=== PATIENT | male | born 1990 | race Two or more races ===

== ENCOUNTER 2019-11-09 18:22 | Inpatient (IN) | payer OTHER ==
[~2019-11-09] VITALS: Ht 180.3 cm; Wt 83.9 kg
--- NOTE | 2019-11-09 18:22 | NUR ---
PT BIB SELF C/O NAUSEA/VOMITING SINCE MONDAY. PT IS AAOX4, NOT IN RESPIRATORY DISTRESS, HOOKED TO ULTRASOUND SUPERVISOR, KEPT RESTED AND COMFORTABLE. WILL CONTINUE TO MONITOR.
--- NOTE | 2019-11-09 18:56 | NUR ---
SEEN AND EXAMINED BY DIANELYS DUNCAN NP.
[2019-11-09] MEDS ORDERED: ONDANSETRON HCL/PF 4 MG/2 ML VIAL IVP ONE (19:00)
[2019-11-09] MEDS ORDERED: IV NS 0.9% 1,000 ML BAG IV ONE (19:00)
--- NOTE | 2019-11-09 19:00 | NUR ---
IV LINE ESTABLISHED BLOOD DRAWN AND SENT TO LAB.
[2019-11-09] MEDS ORDERED: ONDANSETRON HCL/PF 4 MG/2 ML VIAL ONE ×2 (19:05→20:49)
[2019-11-09 19:13] LABS: BASOPHILS # (AUTO) 0.1 /CMM (0.0-0.2); BASOPHILS % (AUTO) 0.8 % (0.0-2.0); EOSINOPHILS % (AUTO) 0.2 % (0.0-6.0); HEMATOCRIT 58 % (39-51); HEMOGLOBIN 19.5 g/dL (13.5-17.5); LYMPHOCYTES # (AUTO) 0.4 /CMM (0.8-4.8); LYMPHOCYTES % (AUTO) 3.5 % (20.0-44.0); MEAN CORPUSCULAR HGB CONC 33 g/dl (31.0-36.0); MEAN CORPUSCULAR VOLUME 98 fL (80-96); MONOCYTES # (AUTO) 0.8 /CMM (0.1-1.30); MONOCYTES % (AUTO) 6.9 % (2.0-12.0); NEUTROPHILS # (AUTO) 10.1 /CMM (1.8-8.9); NEUTROPHILS % (AUTO) 88.6 % (43.0-81.0); PLATELET COUNT (AUTO) 291 /CMM (150-450); RED BLOOD CELL COUNT(AUTO) 5.98 MIL/uL (4.5-6.0); WHITE BLOOD COUNT (AUTO) 11.4 K/uL (4.3-11.0)
--- NOTE | 2019-11-09 19:35 | NUR ---
URINE SENT TO LAB
[2019-11-09 19:38] LABS: ALBUMIN 4.5 g/dL (3.4-5.0); BILIRUBIN,DIRECT 0.8 mg/dL (0.0-0.2); BILIRUBIN,TOTAL 2.4 mg/dL (0.2-1.0); CALCIUM, SERUM 10.1 mg/dL (8.5-10.1); TOTAL PROTEIN, SERUM 9.7 g/dL (6.4-8.2)
--- NOTE | 2019-11-09 19:51 | NUR ---
venous blood collected and sent with RT
[2019-11-09 19:54] LABS: APPEARANCE,URINE CLEAR (CLEAR); BILIRUBIN,URINE MODERATE (NEGATIVE); BLOOD, URINE SMALL Ery/uL (NEGATIVE); COLOR,URINE YELLOW (YELLOW); KETONES,URINE >=80 (NEGATIVE); LEUKOCYTE ESTERASE ,URINE NEGATIVE (NEGATIVE); NITRITE, URINE NEGATIVE (NEGATIVE); PROTEIN,URINE 100 mg/dl (NEGATIVE); UGLUCOSE 500 MG/DL mg/dL (NEGATIVE); UROBILINOGEN,URINE 0.2 EU/dL (0.2)
[2019-11-09 19:59] LABS: ABG BASE EXCESS -17.8 mmol/L; ABG OXYGEN SATURATION 97.3 % (92.0-98.5); ABG PH 7.201 (7.350-7.450); ABG PO2 105.5 mmHg (75.0-100.0); COHb 0.3 % (0.5-1.5); MetHb 0.8 % (0.0-1.5); O2Hb 96.2 % (94.0-97.0)
[2019-11-09 20:03] LABS: BACTERIA,URINE 1+ /HPF (None Seen); HYALINE CASTS, URINE RARE /LPF (None Seen); SQUAMOUS EPITHELIAL CELL,UR 0-2 /HPF (None Seen)
[2019-11-09 20:10] LABS: POTASSIUM 3.7 mmol/L (3.5-5.1)
[2019-11-09 20:11] LABS: BAND % (MANUAL) 4 % (0.0-5.0); LYMPHOCYTES % (MANUAL) 7 % (16-48); MONOCYTES % (MANUAL) 6 % (0-11.0); NEUTROPHILS % (MANUAL) 83 (42-76)
[2019-11-09 20:14] LABS: MAGNESIUM 2.5 mg/dL (1.8-2.4); PHOSPHORUS 4.3 mg/dL (2.5-4.9)
[2019-11-09] MEDS ORDERED: INSULIN REGULAR, HUMAN 100 UNIT/ML 10 ML VIAL ONE (20:23)
[2019-11-09] MEDS ORDERED: POTASSIUM CL. PREMIX PERIPHER. 50 ML ONE ×2 (20:23→22:10)
[2019-11-09] MEDS ORDERED: INSULIN REGULAR, HUMAN 100 UNIT in IV NS 0.9% 99 ML IV PRN ×2 (20:30)
[2019-11-09] MEDS: POTASSIUM CL. PREMIX PERIPHER. 50 ML IV SCH ×2 (20:40→21:30)
[2019-11-09] MEDS ORDERED: ONDANSETRON HCL/PF 4 MG/2 ML VIAL IV ONE (21:00)
[2019-11-09] MEDS ORDERED: IV NS 0.9% 1,000 ML IV SCH (21:06)
[2019-11-09] MEDS ORDERED: ONDANSETRON HCL/PF 4 MG/2 ML VIAL IVP PRN (21:30)
[2019-11-09] MEDS ORDERED: ACETAMINOPHEN 650 MG/SUPP.RECT RC PRN (21:30)
[2019-11-09] MEDS ORDERED: LORAZEPAM INJ 2 MG/ML VIAL IV PRN (21:30)
--- NOTE | 2019-11-09 21:30 | NUR ---
LAB CALLED REGARDING NEGATIVE COVID RESULT.
--- NOTE | 2019-11-09 21:41 | NUR ---
report given to MEENAKSHI GLEZ FOR EVE.
[2019-11-09 22:04] LABS: CREATINE KINASE, TOTAL 159 U/L (39-308)
--- NOTE | 2019-11-09 22:07 | NUR ---
US AT BEDSIDE.
--- NOTE | 2019-11-09 22:27 | NUR ---
US PROCEDURE FINISHED.
--- NOTE | 2019-11-09 22:51 | NUR ---
PATIENT TAKEN TO ASSIGNED ROOM.
[2019-11-09 23:00] VITALS: BP 132/75
[2019-11-09 23:04] LABS: LIPASE 154 U/L (73-393)
[2019-11-09 23:16] LABS: ALCOHOL, BLOOD 0 mg/dL (0-0)
--- NOTE | 2019-11-09 23:19 | NUR ---
travel registered nurse icu.potassium 20 meq ivb given FAMILY RESOURCE MANAGEMENT SPECIALIST
[2019-11-09] MEDS: INSULIN REGULAR, HUMAN 100 UNIT in IV NS 0.9% 99 ML IV PRN ×2 (23:36)
[2019-11-09 23:46] LABS: CALCIUM, SERUM 8.7 mg/dL (8.5-10.1); CREATININE 1.4 mg/dL (0.6-1.3); POTASSIUM 3.3 mmol/L (3.5-5.1)
[2019-11-09] MEDS ORDERED: Thiamine 100 MG/ML VIAL ONE (23:56)
[2019-11-10] VITALS (16 sets, daily range): BP systolic 114–147; BP diastolic 62–90
--- NOTE | 2019-11-10 | NUR ---
CHEESE PACKER. ADMISSION. PT BEING ADMITTED IN THE ICU DKA, PT AWAKE, ALERT, FOLLOW COMMANDS. FITTER UP SHOWING S TACH. PT ON ROOM AIR. SAT 98%, NO ACUTE DISTRESS NOTED. INSULIN DRIP STARTED FROM ER. ACCU CHECK Q1H. WILL CONTINUE TO MONITOR VITALS.
[2019-11-10] MEDS: Thiamine 100 MG in IV D5W 50 ML IV SCH ×2 (00:03→23:14)
[2019-11-10] MEDS ORDERED: Folic acid 1 MG/0.2 ML VIAL ONE (00:11)
[2019-11-10] MEDS: Folic acid 1 MG in IV D5W 50 ML IV SCH ×2 (00:20→22:14)
[2019-11-10] MEDS: Magnesium 1GM/D5W 100ML PREMIX 100 ML IV SCH ×2 (00:57→02:08)
[2019-11-10] MEDS ORDERED: IV PREMIX NS +20MEQ KCL 1 L IV ONE (01:51)
[2019-11-10] MEDS: Potassium Chloride 20 MEQ in IV NS 0.9% 1,000 ML IV PRN ×2 (02:02→12:21)
[2019-11-10] MEDS: POTASSIUM PHOSPHATE MM 5 MMOL in IV NS 0.9% 100 ML IV SCH ×4 (03:13→08:36)
[2019-11-10] MEDS ORDERED: POTASSIUM CL. PREMIX PERIPHER. 50 ML ONE ×2 (03:44→04:45)
[2019-11-10] MEDS: POTASSIUM CL. PREMIX PERIPHER. 50 ML IV SCH ×5 (03:46→16:46)
[2019-11-10] MEDS: BLOOD SUGAR DIAGNOSTIC 1 EACH STRIP IN SCH ×11 (04:01→13:32)
[2019-11-10] MEDS ORDERED: ZOSYN IVPB 3.375 G in IV D5W 50ml IV ONE (04:30)
[2019-11-10 05:10] LABS: BASOPHILS # (AUTO) 0.1 /CMM (0.0-0.2); BASOPHILS % (AUTO) 0.6 % (0.0-2.0); EOSINOPHILS % (AUTO) 0.1 % (0.0-6.0); HEMATOCRIT 49 % (39-51); HEMOGLOBIN 16.5 g/dL (13.5-17.5); LYMPHOCYTES % (AUTO) 10.5 % (20.0-44.0); MEAN CORPUSCULAR HGB CONC 34 g/dl (31.0-36.0); MEAN CORPUSCULAR VOLUME 95 fL (80-96); MONOCYTES % (AUTO) 9.9 % (2.0-12.0); NEUTROPHILS # (AUTO) 7.6 /CMM (1.8-8.9); NEUTROPHILS % (AUTO) 78.9 % (43.0-81.0); PLATELET COUNT (AUTO) 200 /CMM (150-450); RED BLOOD CELL COUNT(AUTO) 5.12 MIL/uL (4.5-6.0); WHITE BLOOD COUNT (AUTO) 9.7 K/uL (4.3-11.0)
[2019-11-10 05:35] LABS: ALBUMIN 3.6 g/dL (3.4-5.0); BILIRUBIN,TOTAL 1.6 mg/dL (0.2-1.0); CALCIUM, SERUM 8.8 mg/dL (8.5-10.1); CREATININE 1.3 mg/dL (0.6-1.3); MAGNESIUM 2.9 mg/dL (1.8-2.4); POTASSIUM 3.1 mmol/L (3.5-5.1); TOTAL PROTEIN, SERUM 7.7 g/dL (6.4-8.2)
[2019-11-10 05:38] LABS: THYROID STIMULATING HORMONE 0.497 uIU/mL (0.358-3.74)
[2019-11-10 05:39] LABS: PHOSPHORUS 0.8 mg/dL (2.5-4.9)
[2019-11-10] MEDS ORDERED: PIPERACILLIN /TAZOBACTAM 3.375 G VIAL IV ONE (05:44)
[2019-11-10] MEDS ORDERED: INSULIN REGULAR, HUMAN 100 UNIT/ML 3 ML VIAL IV STA (06:50)
[2019-11-10] MEDS ORDERED: DEXTROSE 50%-WATER 50 ML DISP.SYRIN IVP STA (06:50)
--- NOTE | 2019-11-10 07:00 | NUR ---
CORRECTIONAL CASE RECORDS SUPERVISOR PATIENT ALERT AND ORIENTED X4 PATIENT IS AWAKE AND EASILY WOKEN, BY NAME . PATIENT ON BEDSIDE MONITOR WITH VITALS STABLE, ON ROOM AIR NO SIGNS OF ACUTE RESPIRATORY DISTRESS AT THIS TIME. VITALS STABLE. LUNG SOUNDS CLEAR IN ALL MURRAY. SKIN INTACT. NPO AT THIS TIME . COVID NEGATIVE RAPID. PATIENT HAS LAC 20G WITH 0.15 k+ NS @ 125 ML. , RAC 20G INSULIN @ 3ML/HR . , AND RIGHT HAND 20 WITH K+ RUNNG. . ALL CLEAN DRY. NO SIGNS OF INFECTION. OR INFILTRATION . PATIENT IS CAN INDEPENDENTLY MOVE ON THE BED BED LOCKED LOWEST POSITION CALL LIGHT WITH IN REACH ALL SAFETY MEAUSRE IMPLEMENTED PER HOSPITAL POLICY .
--- NOTE | 2019-11-10 07:31 | NUR ---
ICU/DIETETIC TECH GAVE REPORT TO DAY RN KATHERIN, MADE HIM AWARE PT STILL CONTINUES TO NEED ACCU CHECKS Q 1 HRS AND THE ON GOING AM LABS OF BMP 4 HS TIL BS IS BELOW 150 THEN CALL MD FOR ORDERS, AND ALSO THE CRITICAL LAB VALUE OF 0.8 PHOS. ,
[2019-11-10 08:46] LABS: MAGNESIUM 2.7 mg/dL (1.8-2.4); PHOSPHORUS 1.1 mg/dL (2.5-4.9)
--- NOTE | 2019-11-10 08:51 | NUR ---
STROKE COORDINATOR - CALLED FOR NEW ORDER. FOR PATIENT PREVIOUS ORDERS FROM SURENDRA Harris NP WAS TO CALL IF BS WAS LOWER THAN 150 . CALLED NOTIFIED
[2019-11-10] MEDS ORDERED: PANTOPRAZOLE 40 MG VIAL IV SCH (09:00)
[2019-11-10 09:30] LABS: CALCIUM, SERUM 8.7 mg/dL (8.5-10.1); POTASSIUM 3.1 mmol/L (3.5-5.1)
[2019-11-10 09:31] LABS: CREATININE 1.1 mg/dL (0.6-1.3)
[2019-11-10 09:33] LABS: POTASSIUM 3.1 mmol/L (3.5-5.1)
[2019-11-10 09:34] LABS: CALCIUM, SERUM 8.7 mg/dL (8.5-10.1); CREATININE 1.1 mg/dL (0.6-1.3)
[2019-11-10] MEDS: INSULIN REGULAR, HUMAN 100 UNIT in IV NS 0.9% 99 ML IV PRN ×2 (10:52)
--- NOTE | 2019-11-10 10:56 | NUR ---
CRIMPER ASSEMBLER- PATIENT HAS NO HOME MEDICATION
--- NOTE | 2019-11-10 11:14 | NUR ---
PROJECT GEOLOGIST - NOTIFIED FOR ORDERS FOR PATIENT IF ANY CHANGES
[2019-11-10] MEDS ORDERED: PIPERACILLIN /TAZOBACTAM 3.375 G in IV D5W 50 ML IV SCH (12:00)
[2019-11-10] MEDS: PIPERACILLIN /TAZOBACTAM 3.375 G in IV D5W 100 ML IV SCH ×2 (12:21→21:49)
[2019-11-10 12:31] LABS: CALCIUM, SERUM 8.7 mg/dL (8.5-10.1); CREATININE 1.1 mg/dL (0.6-1.3); MAGNESIUM 2.5 mg/dL (1.8-2.4); PHOSPHORUS 1.1 mg/dL (2.5-4.9); POTASSIUM 3.1 mmol/L (3.5-5.1)
[2019-11-10] MEDS ORDERED: Potassium Chloride 20 MEQ in IV D5/0.45 NACL 1,000 ML IV PRN (13:00)
[2019-11-10] MEDS ORDERED: POTASSIUM CHLORIDE 10 MEQ/50 ML PREMIXED IVPB FOR PERIPHERAL LINE IV ONE (13:00)
--- NOTE | 2019-11-10 13:08 | NUR ---
POLE CLIMBER - PER PROTOCOL FOLLOWING PER HOSPITAL POLICY FOLLOWING PROTOCOL PATIENT BS 123/LAB 144 ION GAP 19. ORDERS D/5 1/2 NS @ 175 ML <250 BS FOLLOWING PROTOCOL PATIENT POTASSIUM< 3.1 ORDERS 10MEQ X 3 TIMES KCL
--- NOTE | 2019-11-10 13:10 | NUR ---
CALL BOX WIRER - WILL NOTIFY WHEN AVAILABLE .
--- NOTE | 2019-11-10 13:30 | NUR ---
DEPUTY OF COUNTER INTELLIGENCE- DR GLEZ ON . PER DR'S ORDERS DISCONTINUE INSULIN DRIP, IV FLUIDS , NPO NEW ORDERS TO PUT ON DIABETIC DIET, NEUTRAPHOS 2 PACKETS ONCE NOW . TRANSFER TO [facility] , CONTINUE 30MEQ KCL
[2019-11-10] MEDS ORDERED: NEUTRA PHOS 1 POWD.PACKET PO ONE (14:30)
--- NOTE | 2019-11-10 15:00 | NUR ---
WASHER BLANKET - REPORT GIVEN TO ARNOLD GLEZ.
--- NOTE | 2019-11-10 15:00 | NUR ---
WHIPPER BEATER/NADIYA NOTE RECEIVED REPORT FROM NURSE PANDEY. ROOM SET UP AWAITING PT'S ARRIVAL.
[2019-11-10 15:12] LABS: CALCIUM, SERUM 8.5 mg/dL (8.5-10.1); CREATININE 1.1 mg/dL (0.6-1.3)
[2019-11-10 15:26] LABS: PHOSPHORUS 0.8 mg/dL (2.5-4.9)
--- NOTE | 2019-11-10 15:38 | NUR ---
PERFORATOR TYPIST - TRANSFER COMPLETED TO [facility]
--- NOTE | 2019-11-10 15:40 | NUR ---
DEBT COLLECTOR/NADIYA OPENING NOTE RECEIVED PT VIA WHEELCHAIR IN STABLE CONDITION. PT IS AWAKE, ALERT AND ORIENTED X4. PT CAME IN MED-SURG STATUS. PT ON ROOM AIR SATURATING AT %. PT'S SKIN IS INTACT. PT ABLE TO WALK TO THE RESTROOM WITHOUT ANY ASSISTANCE. PT HAS A R AC, L AC AND A RIGHT HAND 20' INTACT, PATENT AND FLUSHING WELL. NO ACUTE DISTRESS OR SOB NOTED. PT'S V/S UPON ARRIVAL TO THE UNIT ARE THE FOLLOWING: Bp: 125/75, hr 80 rr 20 temperature oral 97.4 o2 100%. CALL LIGHT WITHIN REACH AND FUNCTIONING. BED LOCKED AND IN LOWEST POSITION. WILL CONTINUE TO MONITOR AND ASSESS PT.
[2019-11-10 17:12] LABS: CALCIUM, SERUM 8.4 mg/dL (8.5-10.1); CREATININE 1.1 mg/dL (0.6-1.3); MAGNESIUM 2.4 mg/dL (1.8-2.4); PHOSPHORUS 1.8 mg/dL (2.5-4.9); POTASSIUM 3.1 mmol/L (3.5-5.1)
--- NOTE | 2019-11-10 18:56 | NUR ---
DIRECTOR OF EVENT MARKETING/NADIYA CLOSING NOTE PT IS CURRENTLY IN BED AWAKE, ALERT AND ORIENTED X4. PT IS WATCHING TELEVISION WITH NO ACUTE DISTRESS OR SOB NOTED. PT IS ON ROOM AIR AND SATURATING AT 100% AT THIS TIME. PT IS AMBULATORY AND ABLE TO GO TO THE BATHROOM BY HIMSELF. PT'S SKIN IS INTACT. PT HAS A RIGHT AC 20', RIGHT HAND 20' AND A LEFT AC 20' THAT IS INTACT, PATENT AND FLUSHING WELL. PT IS IN STABLE CONDITION AT THIS TIME. PT DIES ANY PAIN OR DISCOMFORT AT THIS TIME. ALL NEEDS MET WITH HELP OF CANDELARIA CARMICHAEL. CALL LIGHT WITHIN REACH AND FUNCTIONING. BED LOCKED AND IN LOWEST POSITION. WILL ENDORSE TO NEXT SHIFT NURSE FOR EVE.
--- NOTE | 2019-11-10 19:24 | NUR ---
RN OPENING NOTES RECEIVED PT IN BED RESTING. ALERT AND ORIENTED X 4. FULL CODE. PT IS ON ROOM AIR AND TOLERATING WELL. NO SIGNS OF SHORTNESS OF BREATH OR RESPIRATORY DISTRESS NOTED AT THIS TIME. NPO DIET. IV SITES LEFT AC #20, RIGHT AC # 20, RIGHT HAND #20 ALL PATENT AND FLUSHED. PT C/O PAIN 4/10 AT THIS TIME BUT VERBALIZES IT IS TOLERABLE. SKIN IS WARM DRY AND INTACT. PT USES A URINAL. WILL CONTINUE TO MONITOR. BED IS LOCKED IN LOWEST POSITION.
[2019-11-11 04:00] VITALS: BP 125/87
[2019-11-11] MEDS ORDERED: INSULIN REGULAR, HUMAN 100 UNIT/ML 3 ML VIAL SQ PRN (04:30)
[2019-11-11] MEDS ORDERED: DEXTROSE 50%-WATER 50 ML DISP.SYRIN IV PRN (04:30)
[2019-11-11] MEDS: PIPERACILLIN /TAZOBACTAM 3.375 G in IV D5W 100 ML IV SCH ×2 (04:47→12:39)
--- NOTE | 2019-11-11 04:49 | NUR ---
DIABETIC MANAGEMENT NOTIFIED CHIARA FOR LACK OF ORDERS FOR DM, BGL 243, COVERED WITH 4UNITS PER SLIDING SCALE PER MD ORDER. WILL CONTINUE TO MONITOR.
[2019-11-11] MEDS: *INSULIN REGULAR(HUMULIN R)HUM 100 UNIT/ML VIAL SQ PRN ×3 (05:03→12:00)
[2019-11-11 06:35] LABS: BASOPHILS % (AUTO) 0.6 % (0.0-2.0); EOSINOPHILS % (AUTO) 1.6 % (0.0-6.0); HEMATOCRIT 46 % (39-51); HEMOGLOBIN 15.6 g/dL (13.5-17.5); LYMPHOCYTES # (AUTO) 1.5 /CMM (0.8-4.8); LYMPHOCYTES % (AUTO) 19.8 % (20.0-44.0); MEAN CORPUSCULAR HGB CONC 34 g/dl (31.0-36.0); MEAN CORPUSCULAR VOLUME 94 fL (80-96); MONOCYTES # (AUTO) 0.5 /CMM (0.1-1.30); MONOCYTES % (AUTO) 6.8 % (2.0-12.0); NEUTROPHILS # (AUTO) 5.4 /CMM (1.8-8.9); NEUTROPHILS % (AUTO) 71.2 % (43.0-81.0); PLATELET COUNT (AUTO) 174 /CMM (150-450); RED BLOOD CELL COUNT(AUTO) 4.83 MIL/uL (4.5-6.0); WHITE BLOOD COUNT (AUTO) 7.6 K/uL (4.3-11.0)
--- NOTE | 2019-11-11 07:19 | NUR ---
NUCLEAR MEDICINE TECH/NADIYA OPENING NOTE RECEIVED PT IN BED. PT IS AWAKE, ALERT AND ORIENTED X4. PT IS ON HIS PHONE. PT IS ON ROOM AIR SATURATING AT 100% AT THIS TIME. NO SOB OR ACUTE DISTRESS NOTED AT THIS TIME. PT DOES NOT COMPLAIN OF ANY PAIN RIGHT NOW. PT NOTED WITH A LEFT AC 20' RIGHT AC 20' AND A RIGHT HAND 20' THAT IS INTACT, PATENT AND FLUSHING WELL. NO INFILTRATION OR S/S OF INFECTION NOTED AT THIS TIME. PT'S SKIN IS INTACT AND IS ABLE TO AMBULATE TO THE BATHROOM BY HIMSELF. CALL LIGHT WITHIN REACH AND FUNCTIONING. BED LOCKED AND IN LOWEST POSITION. WILL CONTINUE TO MONITOR AND ASSESS PT.
--- NOTE | 2019-11-11 07:20 | NUR ---
RN CLOSING NOTE PT IS CURRENTLY RESTING. PT DENIES PAIN AT THIS TIME. ALERT AND ORIENTED X 4. ON ROOM AIR, TOLERATING WELL. NO SIGNS OF SHORTNESS OF BREATH OR RESPIRATORY DISTRESS. BREATHING IS EVEN AND UNLABORED. PT DID NOT HAVE A BM DURING MY SHIFT. IV SITES PATENT AND FLUSHED. NO SIGNS OF INFILTRATION NOTED AT THIS TIME. BED IS LOCKED IN LOWEST POSITION. CALL LIGHT WITHIN REACH. ENDORSED TO ONCOMING NURSE FOR CONTINUATION OF CARE.
[2019-11-11] MEDS ORDERED: PANTOPRAZOLE 40 MG TABLET.DR PO SCH (07:30)
[2019-11-11] MEDS: BLOOD SUGAR DIAGNOSTIC 1 EACH STRIP VI SCH ×2 (08:25→11:30)
[2019-11-11] MEDS ORDERED: FOLIC ACID 1 MG TABLET PO SCH (09:00)
[2019-11-11] MEDS ORDERED: THIAMINE HCL 100 MG TABLET PO SCH (09:00)
[2019-11-11 09:14] LABS: ALBUMIN 3.1 g/dL (3.4-5.0); BILIRUBIN,TOTAL 1.9 mg/dL (0.2-1.0); CALCIUM, SERUM 8.6 mg/dL (8.5-10.1); CREATININE 0.9 mg/dL (0.6-1.3); MAGNESIUM 2.5 mg/dL (1.8-2.4); PHOSPHORUS 2.2 mg/dL (2.5-4.9); POTASSIUM 3.7 mmol/L (3.5-5.1); TOTAL PROTEIN, SERUM 6.9 g/dL (6.4-8.2)
[2019-11-11 12:00] VITALS: BP 132/82
[2019-11-11] MEDS ORDERED: K PHOS NEUTRAL 250 MG TABLET PO ONE (14:00)
--- NOTE | 2019-11-11 15:59 | NUR ---
SENIOR DATA MODELER/NADIYA NOTE PT WAS PICKED UP BY HIS GIRLFRIEND IN STABLE CONDITION. PT'S IV'S REMOVED, DISCHARGE INSTRUCTIONS PROVIDED PER FACILITY PROTOCOL. PT LEFT IN STABLE CONDITION WITH HIS BELONGINGS.
--- NOTE | 2019-11-11 16:00 | NUR ---
MOP MAKER NOTE: Patient was picked up by Girlfriend and discharged in stable condition with belongings and discharge packet.
== END 2019-11-11 16:00 | disposition home or self-care (01) | DRG 637 ==
LOC: ER 18:31 → ICU 21:22 → MEDSG1 11-10 15:41
PROVIDERS: ADMIT Registered Nurse
DX: E11.10 Type 2 diabetes mellitus with ketoacidosis without coma (principal); N17.0 Acute kidney failure with tubular necrosis; E83.39 Other disorders of phosphorus metabolism; E86.0 Dehydration; D72.828 Other elevated white blood cell count; R74.0 Nonspecific elevation of levels of transaminase and lactic acid dehydrogenase [LDH]; E83.41 Hypermagnesemia; Z79.84 Long term (current) use of oral hypoglycemic drugs; F10.21 Alcohol dependence, in remission; Z83.3 Family history of diabetes mellitus
CPT/HCPCS: 36415; 36600; 71045-TC; 76700-TC; 80048-TC; 80053-TC; 80061-TC; 80076-TC; 81000-TC; 82010-TC; 82550-TC; 82962-TC; 83605-TC; 83690-TC; 83735-TC; 84100-TC; 84443-TC; 85025-TC; 85730-TC; 87081-TC; C9113; G0378; G0480; J1815; J2405; J2543; J3411; J3475; J3480; J3490; J7030; J7040; J7050; J7060

== ENCOUNTER 2020-01-27 07:43 | Inpatient (IN) | payer OTHER ==
[2020-01-27] VITALS (9 sets, daily range): BP systolic 118–137; BP diastolic 70–89
[~2020-01-27] VITALS: Ht 180.3 cm; Wt 94.3 kg
[2020-01-27] MEDS ORDERED: ONDANSETRON HCL/PF 4 MG/2 ML VIAL IVP ONE (08:00)
[2020-01-27] MEDS ORDERED: IV NS 0.9% 1,000 ML BAG IV ONE (08:00)
[2020-01-27] MEDS ORDERED: ONDANSETRON HCL/PF 4 MG/2 ML VIAL ONE (08:09)
[2020-01-27 08:55] LABS: BASOPHILS % (AUTO) 0.3 % (0.0-2.0); HEMATOCRIT 55 % (39-51); HEMOGLOBIN 18.3 g/dL (13.5-17.5); LYMPHOCYTES # (AUTO) 0.5 /CMM (0.8-4.8); LYMPHOCYTES % (AUTO) 4.1 % (20.0-44.0); MEAN CORPUSCULAR HGB CONC 33 g/dl (31.0-36.0); MEAN CORPUSCULAR VOLUME 94 fL (80-96); MONOCYTES # (AUTO) 0.7 /CMM (0.1-1.30); MONOCYTES % (AUTO) 5.3 % (2.0-12.0); NEUTROPHILS # (AUTO) 12.2 /CMM (1.8-8.9); NEUTROPHILS % (AUTO) 90.3 % (43.0-81.0); PLATELET COUNT (AUTO) 284 /CMM (150-450); RED BLOOD CELL COUNT(AUTO) 5.82 MIL/uL (4.5-6.0); WHITE BLOOD COUNT (AUTO) 13.5 K/uL (4.3-11.0)
[2020-01-27 09:07] LABS: ALBUMIN 4.3 g/dL (3.4-5.0); BILIRUBIN,DIRECT 0.5 mg/dL (0.0-0.2); BILIRUBIN,TOTAL 1.6 mg/dL (0.2-1.0); CALCIUM, SERUM 9.3 mg/dL (8.5-10.1); CREATININE 1.8 mg/dL (0.6-1.3); TOTAL PROTEIN, SERUM 9.3 g/dL (6.4-8.2)
--- NOTE | 2020-01-27 09:28 | NUR ---
GLUCOSE 443
[2020-01-27] MEDS ORDERED: GLIP5TAB13 PO (09:52)
[2020-01-27] MEDS ORDERED: METF-441 PO (09:52)
[2020-01-27] MEDS ORDERED: IV NS 0.9% 1,000 ML IV ONE (10:00)
[2020-01-27] MEDS ORDERED: IV PREMIX NS + 40 MEQ KCL 1,000 L IV PRN (10:00)
[2020-01-27] MEDS ORDERED: INSULIN REGULAR, HUMAN 100 UNIT in IV NS 0.9% 99 ML IV PRN ×6 (10:00→20:30)
--- NOTE | 2020-01-27 10:00 | NUR ---
INSULIN DRIP AND KCL SENT BY PHARMACY.
--- NOTE | 2020-01-27 10:43 | NUR ---
covid swab done sent to lab
[2020-01-27] MEDS ORDERED: MORPHINE SULFATE INJ 2 MG/ML DISP.SYRIN IV PRN (11:00)
[2020-01-27] MEDS ORDERED: HYDROCODONE/APAP 5/325MG TABLET PO PRN (11:00)
[2020-01-27] MEDS ORDERED: ONDANSETRON HCL/PF 4 MG/2 ML VIAL IVP PRN (11:00)
[2020-01-27] MEDS ORDERED: IV NS 0.9% 1,000 ML IV PRN (11:00)
[2020-01-27] MEDS ORDERED: MAG HYDROX/AL HYDROX/SIMETH 30 ML UDC PO PRN (11:00)
[2020-01-27] MEDS ORDERED: ACETAMINOPHEN 325 MG TABLET PO PRN (11:00)
[2020-01-27] MEDS ORDERED: SODIUM BICARBONATE SYR 50 MEQ/50 ML DISP.SYRIN IV ONE (11:00)
--- NOTE | 2020-01-27 11:20 | NUR ---
GOT BED 265 IN 20 MINS
--- NOTE | 2020-01-27 12:00 | NUR ---
covid negative. made aware.
[2020-01-27] MEDS ORDERED: Sodium Bicarbonate 100 MEQ in IV D5/0.45 NACL 1,000 ML IV ONE (12:30)
[2020-01-27] MEDS ORDERED: SODIUM BICARBONATE SYR 100 MEQ in IV NS 0.9% 1,000 ML IV ONE (12:30)
[2020-01-27] MEDS ORDERED: Sodium Bicarbonate 100 MEQ in IV NS 0.9% 1,000 ML IV ONE (12:30)
--- NOTE | 2020-01-27 13:11 | NUR ---
REPORT GIVEN TO MATT GLEZ FOR EVE
--- NOTE | 2020-01-27 13:30 | NUR ---
EMPLOYEE COUNSELOR NOTES RECEIVED PT FROM ER, AAO X 4, DX DKA WITH ACUTE KIDNEY FAILURE BY THIERRY CEDILLO NATUROPATHIC PHYSICIAN, ON ROOM AIR SATTING 99%. DENIES SOB, NO DISTRESS, SINUS TACH HR 108 ON MONITOR. DENIES PAIN/DISCOMFORT. IV ACCESS TO LEFTAC AND RIGHT AC, BOTH SITES CLEAR. NPO. NO SKIN ISSUES. UNIT ORIENTATION AND USE OF CALL DONE. BED LOW LOCKED, SR UP X 2. WILL CONT TO MONITOR. WILL CONTINUE DRIPS AND IV'S
--- NOTE | 2020-01-27 13:41 | NUR ---
pt transferred to icu in rm 265
--- NOTE | 2020-01-27 14:35 | NUR ---
RESTAURANT SUPERVISOR NOTES PER THIERRY CEDILLO PELTS SKINNER, CLARIFICATION OF ORDERS - HOURLY ACCUCHECK. JUST FINISH CURRENT KCL BAG AND BICARB. CONTINUE WITH INSULIN DRIP AND CONTINUE WITH NS 0.9% AT 150 ML/HR.
[2020-01-27] MEDS: BLOOD SUGAR DIAGNOSTIC 1 EACH STRIP IN SCH ×8 (15:46→23:04)
--- NOTE | 2020-01-27 19:20 | NUR ---
MARKETING AUTOMATION SPECIALIST CLOSING NOTES PATIENT RESTING. AAO X 4, ON ROOM AIR SATTING 99%. DENIES SOB, NO DISTRESS, SINUS TACH TO SINUS RHTYHM HR 85-108 ON MONITOR. DENIES PAIN/DISCOMFORT. IV ACCESS TO LEFTAC AND RIGHT AC, BOTH SITES CLEAR. NPO. NO SKIN ISSUES. UNIT ORIENTATION AND USE OF CALL DONE. BED LOW LOCKED, SR UP X 2. ENDORSED TO NEXT SHIFT FOR EVE. ONGOING BICARB AT 150 ML/HR. , ONGOING NS AT 150 ML/HR. INSULIN DRIP AT 3 UNITS /HR.
--- NOTE | 2020-01-27 19:30 | NUR ---
PATIENT TRANSPORTER NOTE PT IN BED A/O X 4, NO SOB, NO DISTRESS OR DISCOMFORT NOTED. DENIES PAIN. IVF INFUSING NS @ 150 ML/HR AND BICARB @15O ML/HR AT LAC #18G NO S/S OF INFILTRATION NOTED. RAC #18 G INFUSING INSULIN DRIP AT 3 UNITS PER HR. ON TELE SR 96. SIDE RAILS UP X 2 AND CALL LIGHT WITHN REACH. VSS. CONTINUE TO MONITOR
[2020-01-27 19:52] LABS: CALCIUM, SERUM 8.6 mg/dL (8.5-10.1); MAGNESIUM 2.5 mg/dL (1.8-2.4); POTASSIUM 3.3 mmol/L (3.5-5.1)
--- NOTE | 2020-01-27 20:05 | NUR ---
DIRECTOR AERONAUTICS COMMISSION NOTE SERVICE AIDE CLESTLINE INFORMED ME PHOS LEVEL IS 0.9. ALSO NOTED K 3.3 DR GOODRICH INFORMED AND RECEIVED NEW ORDER, ORDER NOTED AND CARRIED OUT.
[2020-01-27 20:07] LABS: PHOSPHORUS 0.9 mg/dL (2.5-4.9)
--- NOTE | 2020-01-27 20:38 | NUR ---
SCRATCH POLISHER NOTES SPOKE TO PHARMACIST REGARDING CHANGE IN INSULIN DRIP PROTOCOL FROM BS X 2/100 = UNITS/HR TO BS X 1.5/100 = UNITS PER HOUR. ORDER CHANGED IN COMMENTS DIRECTED BY PHARMACIST. ALSO WITH NEW ORDER FOR KPHOS 15MMOL. PER PGHRAMCIST, SINCE PATIENT DOES NOT HAVE A CENTRAL LINE, TO CHANGE ORDER TO 7.5MMOL X2 BAGS. ALL ORDERS CLARIFIED WITH PHARMACIST, WILL CARRY OUT NEW ORDERS AND MONITOR CLOSELY
[2020-01-27] MEDS: POTASSIUM CL. PREMIX PERIPHER. 50 ML IV SCH ×3 (21:01→23:12)
[2020-01-27] MEDS: IV D5/0.45 NACL 1,000 ML IV PRN (21:01)
[2020-01-27] MEDS: POTASSIUM PHOSPHATE MM 7.5 MMOL in IV NS 0.9% 100 ML IV SCH (22:13)
[2020-01-28] VITALS (26 sets, daily range): BP systolic 107–148; BP diastolic 63–97
[2020-01-28] MEDS: BLOOD SUGAR DIAGNOSTIC 1 EACH STRIP IN SCH ×21 (00:04→21:13)
[2020-01-28] MEDS: POTASSIUM CL. PREMIX PERIPHER. 50 ML IV SCH ×4 (00:38→15:15)
[2020-01-28] MEDS: POTASSIUM PHOSPHATE MM 7.5 MMOL in IV NS 0.9% 100 ML IV SCH ×3 (00:45→14:07)
[2020-01-28 02:33] LABS: CALCIUM, SERUM 8.5 mg/dL (8.5-10.1); CREATININE 0.9 mg/dL (0.6-1.3); MAGNESIUM 2.4 mg/dL (1.8-2.4); POTASSIUM 3.7 mmol/L (3.5-5.1)
[2020-01-28 02:34] LABS: BASOPHILS # (AUTO) 0.1 /CMM (0.0-0.2); BASOPHILS % (AUTO) 0.9 % (0.0-2.0); EOSINOPHILS % (AUTO) 0.3 % (0.0-6.0); HEMATOCRIT 44 % (39-51); LYMPHOCYTES # (AUTO) 1.3 /CMM (0.8-4.8); LYMPHOCYTES % (AUTO) 11.9 % (20.0-44.0); MEAN CORPUSCULAR HGB CONC 34 g/dl (31.0-36.0); MEAN CORPUSCULAR VOLUME 92 fL (80-96); MONOCYTES # (AUTO) 0.9 /CMM (0.1-1.30); NEUTROPHILS # (AUTO) 8.7 /CMM (1.8-8.9); NEUTROPHILS % (AUTO) 78.9 % (43.0-81.0); PLATELET COUNT (AUTO) 180 /CMM (150-450); RED BLOOD CELL COUNT(AUTO) 4.79 MIL/uL (4.5-6.0); WHITE BLOOD COUNT (AUTO) 11.1 K/uL (4.3-11.0)
[2020-01-28 02:38] LABS: PHOSPHORUS 0.9 mg/dL (2.5-4.9)
--- NOTE | 2020-01-28 03:00 | NUR ---
[employer] SALES REPRESENTATIVE NOTE MBA [employer]NS[employer] CALLED AND INFORMED PHOS LEVEL 0.9. 2ND BAG OF K PHOS IS INFUSING AT THIS TIME. DR GOODRICH INFORMED. NO NEW ORDER AT THIS TIME. PER MD CHECK THE LEVEL IN AM AGAIN. WILL FOLLOW UP. PT IN NO DISTRESS OR DISCOMFORT AT THIS. INSULIN DRIP INFUSING AT 3 U/HR. CONTINUE TO MONITOR HIM.
--- NOTE | 2020-01-28 07:08 | NUR ---
MEN'S CUSTOM HAIR PIECE CONSULTANT NOTE PT IN BED AWAKE. NO DISTRESS OR DISCOMFORT NOTED. ON TELE SR 88. REMAIN ON INSULIN DRIP 2 U/HR. ALSO INFUSING D5 1/2 NS AT 100 ML/HR. SIDE RAILS UP X 2 AND CALL LIGHT WITHIN REACH. ENDORSE TO DAY SHIFT NURSE FOR CONTINUE TO CARE.
[2020-01-28 07:45] LABS: CALCIUM, SERUM 8.5 mg/dL (8.5-10.1); CREATININE 0.9 mg/dL (0.6-1.3); MAGNESIUM 2.3 mg/dL (1.8-2.4); POTASSIUM 3.1 mmol/L (3.5-5.1)
[2020-01-28] MEDS: IV D5/0.45 NACL 1,000 ML IV PRN (08:03)
--- NOTE | 2020-01-28 12:00 | NUR ---
Patient seen by Dr. Ortiz. States No DVT prophylaxis required, ambulate patient once off drip + SCDs. Orders received to begin CCHO diet, turn off insulin drip in two hours (turn off @1400), turn off D51/2NS, restart home meds now, continue BMP Q4hr -> if patient tolerates, DC insulin drip, no IVF, change accucheck to ACHS, no insulin sliding scale necessary Addendum: 01/28/20 at 1556 by BENY CADENA RN per MD anion gap is closed (cation + anion calculation done)
[2020-01-28] MEDS: glipiZIDE 5 MG TABLET PO SCH (12:06)
[2020-01-28] MEDS: METFORMIN 850 MG TABLET PO SCH ×2 (12:06→17:23)
[2020-01-28 12:33] LABS: CALCIUM, SERUM 8.4 mg/dL (8.5-10.1); CREATININE 0.8 mg/dL (0.6-1.3); MAGNESIUM 2.1 mg/dL (1.8-2.4); PHOSPHORUS 1.1 mg/dL (2.5-4.9)
[2020-01-28 16:22] LABS: CALCIUM, SERUM 8.1 mg/dL (8.5-10.1); CREATININE 0.8 mg/dL (0.6-1.3); MAGNESIUM 1.7 mg/dL (1.8-2.4); PHOSPHORUS 1.9 mg/dL (2.5-4.9); POTASSIUM 3.1 mmol/L (3.5-5.1)
[2020-01-28 19:54] LABS: CALCIUM, SERUM 8.1 mg/dL (8.5-10.1); CREATININE 0.9 mg/dL (0.6-1.3); MAGNESIUM 1.6 mg/dL (1.8-2.4); PHOSPHORUS 1.6 mg/dL (2.5-4.9)
[2020-01-28] MEDS ORDERED: POTASSIUM CHLORIDE 20 MEQ TAB.PRT.SR PO ONE (20:30)
--- NOTE | 2020-01-28 20:40 | NUR ---
insulin drip off since 1400 today. BMP continued Q4hr after x2 per MD order. Latest BMP @1919 - potassium = 3, phos 1.6, mag 1.6. Raiza PATINO aware. Orders received, per Raiza PATINO 1) ok for next BMP to be in am + 2) ok to transfer to [facility] if vitals stable
[2020-01-28] MEDS ORDERED: Sodium Phosphate 30 MMOL in IV NS 0.9% 250 ML IV SCH (21:00)
[2020-01-28] MEDS: Magnesium 1GM/D5W 100ML PREMIX 100 ML IV SCH (21:13)
--- NOTE | 2020-01-28 21:37 | NUR ---
patient states IV lines (electrolytes infusing x2) are painful, 08/29. requests medication
[2020-01-29] VITALS (8 sets, daily range): BP systolic 126–145; BP diastolic 77–86
[2020-01-29] MEDS: Magnesium 1GM/D5W 100ML PREMIX 100 ML IV SCH (00:25)
[2020-01-29 04:33] LABS: BASOPHILS # (AUTO) 0.1 /CMM (0.0-0.2); BASOPHILS % (AUTO) 0.8 % (0.0-2.0); EOSINOPHILS % (AUTO) 1.1 % (0.0-6.0); HEMATOCRIT 44 % (39-51); HEMOGLOBIN 15.2 g/dL (13.5-17.5); LYMPHOCYTES % (AUTO) 26.7 % (20.0-44.0); MEAN CORPUSCULAR HGB CONC 35 g/dl (31.0-36.0); MEAN CORPUSCULAR VOLUME 91 fL (80-96); MONOCYTES # (AUTO) 0.5 /CMM (0.1-1.30); MONOCYTES % (AUTO) 6.2 % (2.0-12.0); NEUTROPHILS # (AUTO) 4.9 /CMM (1.8-8.9); NEUTROPHILS % (AUTO) 65.2 % (43.0-81.0); PLATELET COUNT (AUTO) 150 /CMM (150-450); RED BLOOD CELL COUNT(AUTO) 4.79 MIL/uL (4.5-6.0); WHITE BLOOD COUNT (AUTO) 7.5 K/uL (4.3-11.0)
--- NOTE | 2020-01-29 04:45 | NUR ---
ICU -> [facility] 313-1 Dx: DKA, AKF. Patient transferred per RN MANAGED CARE order, vital signs stable, anion gap closed. Sent with belongings, patient signed sheet. Chart given to community facilitator. No acute distress, remains A/Ox4, on room air, SPO2 100%. Patient eats independently, uses urinal, (UA sent), skin intact, CCHO diet, R AC 18G + R H22F patent, intact, flushing well, no s/s infiltration. s/p insulin drip off 01/27 @1400. accucheck ACHS. am labs drawn for f/u BMP after electrolyte replacement. Per Dr. Ortiz no IVF, insulin sliding scale or DVT prophylaxis. SCDs on. Patient ambulates
--- NOTE | 2020-01-29 04:50 | NUR ---
RADHA RECEIVED FROM ICU VIA BED A 29 Y/O MALE a/o x 4. ALERT/ORIENTED X4 NO NEEDS AT THIS TIME. ORIENTED TO ROOM FACILITIES. SAFETY PRECAUTIONS EMPHASIZED, CALL LIGHT WITHIN REACH. REMINDED TO CALL FOR STAFF FOR ANY ASSITANCE OF DISCOMFORTS. BS MONITORED. CLOSELY WATCHED FOR S/S OF HYPER AND HYPOGLYCEMIA. CLOSELY WATCHED.
[2020-01-29 04:55] LABS: BILIRUBIN,URINE NEGATIVE (NEGATIVE); BLOOD, URINE NEGATIVE Ery/uL (NEGATIVE); COLOR,URINE YELLOW (YELLOW); LEUKOCYTE ESTERASE ,URINE NEGATIVE (NEGATIVE); NITRITE, URINE NEGATIVE (NEGATIVE); PH,URINE 6.5 (5.0-8.0); PROTEIN,URINE NEGATIVE (NEGATIVE); UGLUCOSE NEGATIVE (NEGATIVE)
[2020-01-29 05:00] LABS: BACTERIA,URINE Rare /HPF (None Seen); RBC,URINE 0-2 /HPF (0-2); SQUAMOUS EPITHELIAL CELL,UR Rare /HPF (None Seen); WBC,URINE 0-2 /HPF (0-3)
[2020-01-29 05:01] LABS: MUCUS,URINE Few /LPF (None Seen)
[2020-01-29 05:25] LABS: CALCIUM, SERUM 7.9 mg/dL (8.5-10.1); CREATININE 0.6 mg/dL (0.6-1.3); MAGNESIUM 2.3 mg/dL (1.8-2.4); PHOSPHORUS 4.2 mg/dL (2.5-4.9); POTASSIUM 3.6 mmol/L (3.5-5.1)
[2020-01-29] MEDS: BLOOD SUGAR DIAGNOSTIC 1 EACH STRIP IN SCH (06:46)
--- NOTE | 2020-01-29 07:00 | NUR ---
MSRN BS WAS 173. NO SLIDING SCALE ORDERED. NO DISCOMFORTS MADE.
--- NOTE | 2020-01-29 08:00 | NUR ---
RN Opening note Received patient in bed AO x 4 able to responds all stimuli, denies pain or discomfort. Skin is warm to touch keep clean/dry, intact IV site on right AC 18g and right hand. Respiratory even and unlabored on room air O2sat 98%, no sob or distress observed. Kept bed locked with elevated HOB for ensure airway and aspiration precaution also lowest bed position for safety. Call light within reach will continue to monitor.
[2020-01-29] MEDS: METFORMIN 850 MG TABLET PO SCH (09:32)
[2020-01-29] MEDS: glipiZIDE 5 MG TABLET PO SCH (09:32)
--- NOTE | 2020-01-29 11:40 | NUR ---
Given discharge instruction include new medications/side effect, and patient verbally understand. patient denies discomfort, in stable condition, left facility escorted by staff to the private car.
== END 2020-01-29 12:41 | disposition home or self-care (01) | DRG 637 ==
LOC: ER 07:51 → ICU 11:27 → MED 01-29 04:45
PROVIDERS: ADMIT Nurse Practitioner Acute Care; ATTEND Family Medicine
DX: E11.10 Type 2 diabetes mellitus with ketoacidosis without coma (principal); N17.0 Acute kidney failure with tubular necrosis; D75.1 Secondary polycythemia; Z91.19 Patient's noncompliance with other medical treatment and regimen; D72.829 Elevated white blood cell count, unspecified; D64.9 Anemia, unspecified; Z20.828 Contact with and (suspected) exposure to other viral communicable diseases; F10.10 Alcohol abuse, uncomplicated; Z79.84 Long term (current) use of oral hypoglycemic drugs; Y90.0 Blood alcohol level of less than 20 mg/100 ml
CPT/HCPCS: 36415; 71045-TC; 80048-TC; 80076-TC; 81001; 82962-TC; 83690-TC; 83735-TC; 84100-TC; 85025-TC; 87081-TC; A9563; G0378; G0480; J1815; J2405; J3475; J3480; J3490; J7030; J7050

== ENCOUNTER 2021-07-01 18:41 | Inpatient (IN) | payer MEDICAID, OTHER ==
[~2021-07-01] VITALS: Ht 177.8 cm; Wt 90.7 kg
[~2021-07-01 18:41] MED LIST: GLIP5TAB13 PO; METF-441 PO
--- NOTE | 2021-07-01 18:50 | NUR ---
To ER bed 10, from home "Drank Alcohol couple days ago- since then been vomiting", -diarrhea, hx of diabetes, aaox3, breathing even and non labored, connected to monitor, awaiting md batista
[2021-07-01] MEDS ORDERED: ONDANSETRON HCL/PF 4 MG/2 ML VIAL IVP ONE (19:00)
[2021-07-01] MEDS ORDERED: IV NS 0.9% 1,000 ML BAG IV ONE (19:00)
[2021-07-01] MEDS ORDERED: ONDANSETRON HCL/PF 4 MG/2 ML VIAL ONE ×2 (19:10→22:02)
[2021-07-01 20:17] LABS: BASOPHILS # (AUTO) 0.1 K/uL (0.0-0.2); BASOPHILS % (AUTO) 0.5 % (0.0-2.0); HEMATOCRIT 54 % (39-51); HEMOGLOBIN 18.7 g/dL (13.5-17.5); LYMPHOCYTES # (AUTO) 0.3 K/uL (0.8-4.8); LYMPHOCYTES % (AUTO) 2.4 % (20.0-44.0); MEAN CORPUSCULAR HGB CONC 35 g/dl (31.0-36.0); MEAN CORPUSCULAR VOLUME 97 fL (80-96); MONOCYTES # (AUTO) 0.8 K/uL (0.1-1.30); MONOCYTES % (AUTO) 7.3 % (2.0-12.0); NEUTROPHILS # (AUTO) 10.4 K/uL (1.8-8.9); NEUTROPHILS % (AUTO) 89.8 % (43.0-81.0); PLATELET COUNT (AUTO) 231 K/uL (150-450); WHITE BLOOD COUNT (AUTO) 11.5 K/uL (4.3-11.0)
[2021-07-01 20:52] LABS: BAND % (MANUAL) 4 % (0.0-5.0); LYMPHOCYTES % (MANUAL) 4 % (16-48); MONOCYTES % (MANUAL) 7 % (0-11.0); NEUTROPHILS % (MANUAL) 85 (42-76)
[2021-07-01 20:54] LABS: ALBUMIN 4.7 g/dL (3.4-5.0); BILIRUBIN,DIRECT 0.5 mg/dL (0.0-0.2); BILIRUBIN,TOTAL 2.1 mg/dL (0.2-1.0); CALCIUM, SERUM 9.3 mg/dL (8.5-10.1); CREATININE 1.5 mg/dL (0.6-1.3); POTASSIUM 4.3 mmol/L (3.5-5.1); TOTAL PROTEIN, SERUM 9.7 g/dL (6.4-8.2)
--- NOTE | 2021-07-01 21:07 | NUR ---
co2:9 glucose 409
--- NOTE | 2021-07-01 21:15 | NUR ---
COVID ANTIGEN SWAB COLLECTED AND SENT TO LAB
[2021-07-01] MEDS ORDERED: INSULIN REGULAR, HUMAN 100 UNIT/ML 10 ML VIAL ONE (21:23)
[2021-07-01] MEDS ORDERED: INSULIN REGULAR, HUMAN 100 UNITS in IV NS 0.9% 100 ML IV PRN ×2 (21:30)
[2021-07-01] MEDS ORDERED: IV PREMIX NS +20MEQ KCL 1,000 L IV PRN (21:30)
[2021-07-01] MEDS ORDERED: IV PREMIX NS +20MEQ KCL 1 L IV ONE (21:41)
--- NOTE | 2021-07-01 21:41 | NUR ---
CALLED [facility] PAGED SURENDRA GUADARRAMA CHILD ATTENDANT
--- NOTE | 2021-07-01 21:41 | NUR ---
INSULIN DRIP INITIATED AT 4.04ML/HR PER MD ORDER. BS PRIOR TO ADMIN 331.
[2021-07-01 21:53] LABS: CALCIUM, SERUM 8.8 mg/dL (8.5-10.1); CREATININE 1.4 mg/dL (0.6-1.3); PHOSPHORUS 2.7 mg/dL (2.5-4.9); POTASSIUM 4.3 mmol/L (3.5-5.1)
[2021-07-01] MEDS ORDERED: ONDANSETRON HCL/PF - ER 4 MG/2 ML VIAL IV ONE (22:00)
--- NOTE | 2021-07-01 22:25 | NUR ---
REPORT GIVEN TO ZARIA
[2021-07-01] MEDS ORDERED: MAG HYDROX/AL HYDROX/SIMETH 30 ML UDC PO PRN (23:00)
[2021-07-01] MEDS ORDERED: MAGNESIUM HYDROXIDE 30 ML UDC PO PRN (23:00)
[2021-07-01] MEDS ORDERED: Z GUARD REMEDY 4 OZ OINT TP PRN (23:00)
[2021-07-01] MEDS ORDERED: ACETAMINOPHEN 325 MG TABLET PO PRN (23:00)
--- NOTE | 2021-07-01 23:08 | NUR ---
PERSONAL PROTECTION SPECIALIST ADMISSION NOTES RECEIVED PATIENT FROM ER VIA CATRACHITO, 30 Y/O MALE PATIENT, A/O X 4, AMBULATORY. ON ROOM AIR. RESPIRATORY EVEN AND UNLABORED, NO SOB NOTED. NO S/S OF DISTRESS NOTED. REMAIN AFEBRILE. NOTED WITH RAC #20 AND LAC #20, PATENT AND INTACT, FLUSHED WITH NS. NO S/S OF INFILTRATION NOTED AT SITE. RUNNING WITH PREMIX NS + 20MEQ @ 250 ML/HR, AND INSULIN DRIP 4.04 UNITS/HR. COMPLETE BODY ASSESSMENT DONE, SKIN IS INTACT. VITAL SIGNS TAKEN AND RECORDED AND REMAIN WNL. ALL SAFETY MEASURE PROVIDED, BED IN LOWEST POSITION, LOCKED. CONTINUE TO MONITOR.
--- NOTE | 2021-07-01 23:11 | NUR ---
PT TRANSPORTED TO ROOM 259 ON PUBLIC HEALTH TEACHER PER ACLS. INSULIN DRIP INFUSING AT 4.04ML/HR AND 20MEQ KCL IN 1000NS INFUSING AT 250ML/HR. PT ON RA AND V/S WNL AT TIME OF TRANSFER.
[2021-07-01] MEDS: INSULIN REGULAR, HUMAN 100 UNIT in IV NS 0.9% 99 ML IV PRN ×2 (23:13)
--- NOTE | 2021-07-01 23:20 | NUR ---
SPECIAL DIET COOK PT DECLINED GUILLEN CATH INSERTION
--- NOTE | 2021-07-01 23:22 | NUR ---
RN NOTES RECEIVED TELEPHONE ORDER FROM SUKUMAR Harris, TO CHANGES IV FLUID TO NS 1L @ 150 ML/HR. NOTED AND CARRIED OUT.
[2021-07-01] MEDS: IV NS 0.9% 1,000 ML IV SCH (23:24)
[2021-07-01 23:37] VITALS: BP 163/101
[2021-07-02] VITALS (36 sets, daily range): BP systolic 125–169; BP diastolic 64–103
[2021-07-02] MEDS: BLOOD SUGAR DIAGNOSTIC 1 EACH STRIP IN SCH ×22 (00:01→21:01)
[2021-07-02 00:04] LABS: CALCIUM, SERUM 8.9 mg/dL (8.5-10.1); CREATININE 1.4 mg/dL (0.6-1.3); POTASSIUM 4.5 mmol/L (3.5-5.1)
[2021-07-02 00:07] LABS: MAGNESIUM 2.1 mg/dL (1.8-2.4); PHOSPHORUS 1.7 mg/dL (2.5-4.9)
--- NOTE | 2021-07-02 01:15 | NUR ---
RN NOTES NOTIFIED QUARRY WORKER SURENDRA Harris REGARDING PT. PHOSPHORUS-1.7, WITH NEW ORDER K-PHOS 7.5 MMOL IV, NOTED AND CARRIED OUT.
[2021-07-02] MEDS ORDERED: POTASSIUM PHOSPHATE MM 7.5 MMOL in IV NS 0.9% 100 ML IV SCH (01:30)
[2021-07-02] MEDS ORDERED: Thiamine 100 MG/ML VIAL ONE (01:37)
[2021-07-02] MEDS: Thiamine 100 MG in IV D5W 50 ML IV SCH ×2 (01:47→08:49)
[2021-07-02] MEDS: ENOXAPARIN SODIUM 40 MG/0.4 ML DISP.SYRIN SQ SCH ×2 (02:42→21:02)
[2021-07-02 04:24] LABS: BASOPHILS # (AUTO) 0.1 K/uL (0.0-0.2); BASOPHILS % (AUTO) 0.6 % (0.0-2.0); HEMATOCRIT 49 % (39-51); HEMOGLOBIN 17.2 g/dL (13.5-17.5); LYMPHOCYTES # (AUTO) 0.5 K/uL (0.8-4.8); LYMPHOCYTES % (AUTO) 5.3 % (20.0-44.0); MEAN CORPUSCULAR HGB CONC 35 g/dl (31.0-36.0); MEAN CORPUSCULAR VOLUME 96 fL (80-96); MONOCYTES # (AUTO) 0.8 K/uL (0.1-1.30); MONOCYTES % (AUTO) 8.4 % (2.0-12.0); NEUTROPHILS # (AUTO) 8.3 K/uL (1.8-8.9); NEUTROPHILS % (AUTO) 85.7 % (43.0-81.0); PLATELET COUNT (AUTO) 194 K/uL (150-450); RED BLOOD CELL COUNT(AUTO) 5.09 MIL/uL (4.5-6.0); WHITE BLOOD COUNT (AUTO) 9.7 K/uL (4.3-11.0)
[2021-07-02 04:46] LABS: BILIRUBIN,DIRECT 0.6 mg/dL (0.0-0.2); BILIRUBIN,TOTAL 1.9 mg/dL (0.2-1.0); CALCIUM, SERUM 9.2 mg/dL (8.5-10.1); CREATININE 1.1 mg/dL (0.6-1.3); MAGNESIUM 2.2 mg/dL (1.8-2.4); POTASSIUM 4.1 mmol/L (3.5-5.1); TOTAL PROTEIN, SERUM 8.3 g/dL (6.4-8.2)
--- NOTE | 2021-07-02 05:10 | NUR ---
RN NOTES NOTIFIED LEAD BURNER SUPERVISOR SURENDRA Harris REGARDING PT. PHOSPHORUS-1.0, WITH NEW ORDER K-PHOS 7.5 MMOL IV, NOTED AND CARRIED OUT.
[2021-07-02] MEDS: POTASSIUM PHOSPHATE MM 7.5 MMOL in IV NS 0.9% 100 ML IV SCH ×2 (05:32→08:49)
[2021-07-02] MEDS: IV NS 0.9% 1,000 ML IV SCH ×3 (06:05→19:32)
[2021-07-02] MEDS: ONDANSETRON HCL/PF 4 MG/2 ML VIAL IVP PRN ×3 (07:00→18:58)
--- NOTE | 2021-07-02 07:05 | NUR ---
PUBLIC HEALTH CLINICAL NURSE SPECIALIST Bedside report taken from [facility] nurse Teo GLEZ. pt awake, alert and oriented x4, follows commands. ambulatory with steady gait, moves bue and ble 5/5 perrla. pt on room air, tolerating well. kimberly lung sounds clear. pt npo at this time. bowel sounds present. pt continent or urine and stool, uses urinal. skin intact. pt on insulin drip, all lines traced all drips verified. safety measures in place. no signs of acute distress at this time. will continue to monitor.
--- NOTE | 2021-07-02 07:07 | NUR ---
PATIENT REMAIN STABLE THROUGH OUT THE SHIFT. RESPIRATORY EVEN AND UNLABORED, NO SOB NOTED. NO S/S OF DISTRESS NOTED. REMAIN AFEBRILE. RUNNING WITH NS 1L @ 150 ML/HR AND INSULIN DRIP. ALL DUE MEDS GIVEN ORDERED. ALL SAFETY MEASURE PROVIDED, BED IN LOWEST POSITION, LOCKED. CONTINUE TO MONITOR.
--- NOTE | 2021-07-02 08:08 | NUR ---
REGULATORY AFFAIRS ASSISTANT Dr Palafox at bedside assessing pt and updated on pt status. md aware pt on insulin drip, ok for pt to have water and per md will place diet order. no other orders at this time. will continue to monitor.
[2021-07-02] MEDS: METFORMIN 850 MG TABLET PO SCH ×2 (08:14→17:03)
[2021-07-02] MEDS: FOLIC ACID 1 MG TABLET PO SCH (08:14)
[2021-07-02] MEDS: glipiZIDE 5 MG TABLET PO SCH (08:14)
[2021-07-02] MEDS ORDERED: PANTOPRAZOLE 40 MG VIAL IV SCH (09:00)
[2021-07-02 09:28] LABS: ALBUMIN 3.9 g/dL (3.4-5.0); CREATININE 1.1 mg/dL (0.6-1.3); MAGNESIUM 2.2 mg/dL (1.8-2.4); PHOSPHORUS 1.3 mg/dL (2.5-4.9); POTASSIUM 3.6 mmol/L (3.5-5.1); TOTAL PROTEIN, SERUM 7.9 g/dL (6.4-8.2)
--- NOTE | 2021-07-02 12:20 | NUR ---
MANAGER SHAREPOINT Dr villarreal messaged and made aware that pt bs 148 and on 2.96 units of insulin via drip with ns 100 ml/hr ivf, informed that 12 pm bmp just drawn and have not resulted yet. no new orders per md. charge nurse Grace GLEZ aware.
[2021-07-02 12:36] LABS: ALBUMIN 3.5 g/dL (3.4-5.0); CALCIUM, SERUM 8.7 mg/dL (8.5-10.1); PHOSPHORUS 1.2 mg/dL (2.5-4.9); POTASSIUM 3.6 mmol/L (3.5-5.1); TOTAL PROTEIN, SERUM 7.4 g/dL (6.4-8.2)
--- NOTE | 2021-07-02 15:15 | NUR ---
SS Note: SS received consult for ETOH abuse, non-compliance, and unable to pay for medication. Pt. Is a 30-year-old male who demonstrates adequate insight to the reason for hospitalization. Per pt., he presents to the ER for nausea and vomiting from drinking. Pt. was oriented x3, alert, and cooperative. During interview, pt. was capable of following directions and appeared groomed. Pt.s speech was at a normal rate and pt.s mood was elevated. Pt. reported no hx of mental health, denies suicidal ideation, or homicidal ideation. Pt. denies auditory hallucinations, visual hallucinations, paranoia, or delusions. Per pt., he has a drinking problem. Pt. has been drinking since he was 17 and it got worse throughout the years. SW explored pt.s living situation. Per pt., he lives with his [[id number] [place] [address]]. Pt. stated that he can go back home once discharged. Pt. expressed he wants resources regarding rehab facilities. SW provided pt. with outpatient/inpatient rehab facilities. Plan: SW provided available resources and pt. accepted. MARIAJOSE provided pt. with [place] clinics and alcohol treatment centers. Upon discharge, pt. can return home with his [employer] [[phone]]. Resources Provided: Counseling--Outpatient [facility] [address] [facility] [facility] [place] [address] (Specializes in in-depth psychotherapy for emotional distress: anxiety, depression, interpersonal conflicts, life transitions, childhood abuse) [facility] [address] [place] [address] (Assist with solving problem marital difficulties, separation & divorce, aging parents, & grief, chronic & terminal illness) [facility] [address] [place] [address] (Deal with loss & grief, anxiety, marital difficulties) Homebound/Mental Health Services [address] [place], [place] [id number] (Provide in-home mental services to people who are incapable of leaving their homes) [facility] [address] [place] [address] [facility] [address] [facility] [place] [address] PSYCHIATRIC OUTPATIENT SERVICES [facility] Partial Hospitalization and Intensive Outpatient Program (Managed Care and [place] Only)[address] [facility] [phone] [facility] Partial Hospitalization and Outpatient [id number] [place], [place] [phone] [facility] [id number] [facility] [place], [place] [phone] [facility] Partial Hospitalization and Outpatient [id number] [facility] Jimmy [place], [phone] Substance Abuse resources provided included: [facility] Substance Abuse Self-Helpline ([facility]) ; [facility] [address] [facility]. [place] [id number] ; [facility] [address] [facility] [phone] ; [facility] Rehabilitation Program [address] [phone] ; [facility] [address] [phone] ; [facility] [address] [facility] [id number] ; [facility] [address] [facility] [phone] ; [facility] Substance Abuse Helpline([facility])-[facility] ; [facility] ; [facility]; [facility] [place]; [facility] [place]; [facility] Jimmy [place]; [facility] [place]; [facility] [place]; [facility] [place]; [facility], [facility]. [place]; Alcoholics Anonymous -[facility]; Vn[facility]ola[facility] ; Marijuana Anonymous -[facility]; Narcotics Anonymous www.na.org;
[2021-07-02] MEDS ORDERED: K PHOS NEUTRAL 250 MG TABLET PO ONE (16:00)
[2021-07-02 16:47] LABS: ALBUMIN 3.3 g/dL (3.4-5.0); BILIRUBIN,TOTAL 1.8 mg/dL (0.2-1.0); CALCIUM, SERUM 9.1 mg/dL (8.5-10.1); MAGNESIUM 2.1 mg/dL (1.8-2.4); PHOSPHORUS 1.7 mg/dL (2.5-4.9); POTASSIUM 3.8 mmol/L (3.5-5.1); TOTAL PROTEIN, SERUM 7.1 g/dL (6.4-8.2)
[2021-07-02 17:02] LABS: THYROID STIMULATING HORMONE 0.826 uIU/mL (0.358-3.74)
--- NOTE | 2021-07-02 17:13 | NUR ---
MATH TUTOR latest anion gap 16, Per charge nurse Grace GLEZ, anion gap needs to be 14 or below before messaging MD to change IVF, order lantus and transition from insulin drip. pt awake, alert and oriented. pt on diabetic diet. will continue to monitor.
--- NOTE | 2021-07-02 19:21 | NUR ---
JEWELRY TECHNICIAN Bedside report given to [facility] nurse Akash GLEZ. pt awake, alert and resting comfortable in bed feeding self dinner tray. pt tolerating well. all lines traced. all drips verified. safety measures in place. no sigsn of acute distress at this time. 8pm BMP endorsed to [facility] nurse, possible transition off insulin drip at that time.
--- NOTE | 2021-07-02 20:00 | NUR ---
ICU NOTES Received patient A/O X4.Vital signs stable.Insulin gtt and IVF infusing site intact.SR.Normotensive. Patient denies any discomfort at this time.Latest BS 252 Insulin gtt titrated as ordered.Safety measures implemented.Call light at bedside.
[2021-07-02] MEDS: INSULIN REGULAR, HUMAN 100 UNIT in IV NS 0.9% 99 ML IV PRN ×2 (20:43)
[2021-07-02 21:01] LABS: ALBUMIN 3.2 g/dL (3.4-5.0); BILIRUBIN,TOTAL 1.8 mg/dL (0.2-1.0); CALCIUM, SERUM 8.8 mg/dL (8.5-10.1); CREATININE 0.9 mg/dL (0.6-1.3); MAGNESIUM 1.9 mg/dL (1.8-2.4); PHOSPHORUS 1.8 mg/dL (2.5-4.9); POTASSIUM 3.1 mmol/L (3.5-5.1); TOTAL PROTEIN, SERUM 6.8 g/dL (6.4-8.2)
[2021-07-02] MEDS: IV D5/ 0.9% NACL 1,000 ML IV PRN (22:00)
[2021-07-02] MEDS ORDERED: DEXTROSE 50%-WATER 50 ML DISP.SYRIN IV PRN (22:00)
--- NOTE | 2021-07-02 22:00 | NUR ---
ICU NOTES Patient PM labs resulted.K+ 3.1,Phos 1.8,mg 1.9,Anion Gap 16.Called to SUKUMAR Foy with orders and carried out.Insulin gtt dc'd.IVF changed to D5NS at 100 mls/hr.Will give Kphos as ordered awaiting Pharmacist to mix meds.Accu check changed to Q 4hrs with aggressive S/S.
[2021-07-02] MEDS: POTASSIUM PHOSPHATE MM 5 MMOL in IV NS 0.9% 100 ML IV SCH (22:59)
[2021-07-03] VITALS (20 sets, daily range): BP systolic 108–160; BP diastolic 60–97
[2021-07-03] MEDS: POTASSIUM PHOSPHATE MM 5 MMOL in IV NS 0.9% 100 ML IV SCH ×3 (01:10→09:17)
[2021-07-03] MEDS: BLOOD SUGAR DIAGNOSTIC 1 EACH STRIP IN SCH ×6 (01:11→20:22)
[2021-07-03] MEDS: INSULIN REGULAR, HUMAN 100 UNIT/ML 3 ML VIAL SQ PRN ×6 (01:12→20:40)
--- NOTE | 2021-07-03 02:57 | NUR ---
END NOTES Patient resting in no acute distress.VSS.SR.IVF infusing well.Denies any discomfort.Safety measures maintained.Call light at bedside.Report given to Shannon for continuity of care.
[2021-07-03 05:10] LABS: BASOPHILS # (AUTO) 0.1 K/uL (0.0-0.2); BASOPHILS % (AUTO) 0.9 % (0.0-2.0); EOSINOPHILS % (AUTO) 0.7 % (0.0-6.0); HEMATOCRIT 43 % (39-51); HEMOGLOBIN 15.4 g/dL (13.5-17.5); LYMPHOCYTES # (AUTO) 1.2 K/uL (0.8-4.8); LYMPHOCYTES % (AUTO) 15.2 % (20.0-44.0); MEAN CORPUSCULAR HGB CONC 36 g/dl (31.0-36.0); MEAN CORPUSCULAR VOLUME 95 fL (80-96); MONOCYTES # (AUTO) 0.6 K/uL (0.1-1.30); MONOCYTES % (AUTO) 8.2 % (2.0-12.0); NEUTROPHILS # (AUTO) 5.8 K/uL (1.8-8.9); PLATELET COUNT (AUTO) 130 K/uL (150-450); WHITE BLOOD COUNT (AUTO) 7.7 K/uL (4.3-11.0)
[2021-07-03 05:38] LABS: CALCIUM, SERUM 8.1 mg/dL (8.5-10.1); CREATININE 0.9 mg/dL (0.6-1.3); MAGNESIUM 1.7 mg/dL (1.8-2.4); PHOSPHORUS 2.1 mg/dL (2.5-4.9); TOTAL PROTEIN, SERUM 6.5 g/dL (6.4-8.2)
[2021-07-03] MEDS: IV D5/ 0.9% NACL 1,000 ML IV PRN (05:44)
[2021-07-03 06:05] LABS: POTASSIUM 2.8 mmol/L (3.5-5.1)
--- NOTE | 2021-07-03 06:36 | NUR ---
SOLE SCRAPER. CRITICAL LAB RESULT NOTIFIED SURENDRA PATINO.
--- NOTE | 2021-07-03 06:41 | NUR ---
BOWLING ALLEY ATTENDANT. AM CARE GIVEN. REMAINING SAME IVF D5NS 100ML/H. HOB ELEVATED. PT IS ON ROOM AIR. SAT 98%, NO ACUTE DISTRESS NOTED. WILL CONTINUE TO MONITOR VITALS.
[2021-07-03] MEDS ORDERED: Magnesium 1GM/D5W 100ML PREMIX 100 ML IV SCH (07:00)
[2021-07-03] MEDS ORDERED: POTASSIUM CHLORIDE 20 MEQ TAB.PRT.SR PO ONE (08:30)
[2021-07-03] MEDS: THIAMINE HCL 100 MG TABLET PO SCH (08:58)
[2021-07-03] MEDS: glipiZIDE 5 MG TABLET PO SCH (08:58)
[2021-07-03] MEDS: FOLIC ACID 1 MG TABLET PO SCH (08:58)
[2021-07-03] MEDS: METFORMIN 850 MG TABLET PO SCH ×2 (08:58→17:20)
[2021-07-03] MEDS: ONDANSETRON HCL/PF 4 MG/2 ML VIAL IVP PRN (09:00)
[2021-07-03] MEDS: PANTOPRAZOLE 40 MG TABLET.DR PO SCH (09:01)
--- NOTE | 2021-07-03 11:00 | NUR ---
RN NOTE RECIEVED PATIENT FROM ICU, PLACED IN ROOM 112/2 IN STABLE CONDITION PATIENTS VITALS BP 122/84, O2 99%, HR 97BPM AND TEMP 98.8. NO CURRENT COMPLAINTS OF PAIN OR SOB.
[2021-07-03] MEDS: K PHOS NEUTRAL 250 MG TABLET PO SCH (17:21)
[2021-07-03] MEDS: Potassium Chloride 20 MEQ in IV NS 0.9% 1,000 ML IV SCH (18:01)
--- NOTE | 2021-07-03 18:35 | NUR ---
RN CLOSING NOTE PATIENT RESTING IN BED, ON ROOM AIR WITH NO CURRENT COMPLAINTS OF PAIN OR SOB. IV ACCESS ON LEFT AND RIGHT AC 20g CURRENTLY K+ WITH NS. PATIENT DOES USE THE URINAL, AND HAS BEEN REMINDED TO CALL IF HE WANTS TO GET UP. SAFETY MEASURES IN PLACE BED ALARM ACTIVATED, BED LOCKED IN THE LOWEST POSITION WITH 2 SIDE RAILS UP. CALL LIGHT WITHIN REACH. ALL SCHEDULED MEDICATIONS GIVEN. WILL ENDORSE TO NIGHT NURSE FOR EVE.
--- NOTE | 2021-07-03 18:45 | NUR ---
RN NOTE RECEIVED CALL FROM PHARMACY, PATIENTS PHOSPATE IS LOW, LAB WAS DRAWN 1865 PENDING RESULTS. PER PHARMACY REPLACEMENT WILL BE LACED IN LAB REFRIGERATOR IN CASE IT WERE TO BE NEEDED, WILL ENDORSE TO NIGHT NURSE.
--- NOTE | 2021-07-03 19:15 | NUR ---
MS1 RN NOTES RECEIVED LAYING ON BED A/O X4,BREATHING EASY,NO SOB,PRESENT IVF WITH 20MEQ KCL INFUSING WELL ON RIGHT AC SALINE LOCK VIA IV PUMP, NO S/S OF INFILTRATION NOTED,PATIENT DENIES PAIN, VISITOR AT BEDSIDE.CALL LIGHT IN REACH,NEEDS ANTICIPATED.
[2021-07-03] MEDS: ENOXAPARIN SODIUM 40 MG/0.4 ML DISP.SYRIN SQ SCH (20:24)
--- NOTE | 2021-07-03 20:30 | NUR ---
MS1 RN NOTES BLOOD SUGAR CHECK 172,COVERED WITH HUMULIN R 4 UNITS PER SLIDING SCALE.
[2021-07-04] MEDS: K PHOS NEUTRAL 250 MG TABLET PO SCH ×3 (00:10→12:07)
--- NOTE | 2021-07-04 01:00 | NUR ---
MS RN NOTES ACCU-CHECK BLOOD SUGAR CHECK 155,COVERED WITH HUMULIN R 2 UNITS PER SLIDING SCALE.
[2021-07-04] MEDS: BLOOD SUGAR DIAGNOSTIC 1 EACH STRIP IN SCH ×4 (01:02→13:15)
[2021-07-04] MEDS: INSULIN REGULAR, HUMAN 100 UNIT/ML 3 ML VIAL SQ PRN ×3 (01:10→10:10)
[2021-07-04 04:00] VITALS: BP 129/84
[2021-07-04] MEDS: Potassium Chloride 20 MEQ in IV NS 0.9% 1,000 ML IV SCH (04:59)
--- NOTE | 2021-07-04 05:00 | NUR ---
MS RN NOTES ACCU-CHECK BLOOD SUGAR CHECK 164,COVERED WITH HUMULIN R 4 UNITS PER SLIDING SCALE.
--- NOTE | 2021-07-04 06:24 | NUR ---
MS1 RN NOTES FAIRLY RESTED AT NIGHT,BLOOD SUGAR TRENDING DOWN.NO S/S OF HYPOGLYCEMIA,HYPERGLYCEMIA NOTED,AMBULATE TO THE BATHROOM WITH STEADY GAIT.IVF WITH 20MEQ KCL INFUSING WELL ON RIGHT AC SALINE LOCK.CALL LIGHT IN REACH,NEEDS ATTENDED.
[2021-07-04 07:01] LABS: CALCIUM, SERUM 8.1 mg/dL (8.5-10.1); CREATININE 0.6 mg/dL (0.6-1.3); PHOSPHORUS 3.9 mg/dL (2.5-4.9)
[2021-07-04 07:14] LABS: BASOPHILS % (AUTO) 0.7 % (0.0-2.0); EOSINOPHILS % (AUTO) 1.2 % (0.0-6.0); HEMATOCRIT 45 % (39-51); LYMPHOCYTES % (AUTO) 18.2 % (20.0-44.0); MEAN CORPUSCULAR HGB CONC 36 g/dl (31.0-36.0); MEAN CORPUSCULAR VOLUME 95 fL (80-96); MONOCYTES # (AUTO) 0.4 K/uL (0.1-1.30); MONOCYTES % (AUTO) 7.8 % (2.0-12.0); NEUTROPHILS # (AUTO) 3.9 K/uL (1.8-8.9); NEUTROPHILS % (AUTO) 72.1 % (43.0-81.0); PLATELET COUNT (AUTO) 121 K/uL (150-450); RED BLOOD CELL COUNT(AUTO) 4.74 MIL/uL (4.5-6.0); WHITE BLOOD COUNT (AUTO) 5.4 K/uL (4.3-11.0)
[2021-07-04 07:16] LABS: MAGNESIUM 1.2 mg/dL (1.8-2.4); POTASSIUM 2.5 mmol/L (3.5-5.1)
[2021-07-04 08:00] VITALS: BP 137/96
[2021-07-04] MEDS ORDERED: POTASSIUM CHLORIDE 20 MEQ TAB.PRT.SR PO ONE ×2 (08:00→15:00)
[2021-07-04] MEDS: PANTOPRAZOLE 40 MG TABLET.DR PO SCH (08:01)
[2021-07-04] MEDS: Magnesium 1GM/D5W 100ML PREMIX 100 ML IV SCH ×2 (08:01→09:51)
[2021-07-04] MEDS: METFORMIN 850 MG TABLET PO SCH (08:02)
[2021-07-04] MEDS ORDERED: GLIP5TAB13 PO (08:59)
[2021-07-04] MEDS ORDERED: METF-441 PO (08:59)
[2021-07-04] MEDS: glipiZIDE 5 MG TABLET PO SCH (09:46)
[2021-07-04] MEDS: FOLIC ACID 1 MG TABLET PO SCH (09:46)
[2021-07-04] MEDS: THIAMINE HCL 100 MG TABLET PO SCH (09:46)
--- NOTE | 2021-07-04 10:43 | NUR ---
MS RN notes: RECEIVED PT IN BED A/O X4,BREATHING EVEN,NO SOB,PRESENT IVF WITH 20MEQ KCL INFUSING WELL ON RIGHT AC SALINE LOCK VIA IV PUMP, NO S/S OF INFILTRATION NOTED,PATIENT DENIES PAIN, VISITOR AT BEDSIDE.CALL LIGHT IN REACH,NEEDS ANTICIPATED.
[2021-07-04 13:14] LABS: ALBUMIN 3.1 g/dL (3.4-5.0); BILIRUBIN,TOTAL 1.9 mg/dL (0.2-1.0); CALCIUM, SERUM 8.2 mg/dL (8.5-10.1); CREATININE 0.7 mg/dL (0.6-1.3); POTASSIUM 3.3 mmol/L (3.5-5.1); TOTAL PROTEIN, SERUM 6.7 g/dL (6.4-8.2)
--- NOTE | 2021-07-04 15:48 | NUR ---
pile driving technician notes: spoke to DR García if pt can discharge with potassium 3.3, ordered to give KCL 80 MeQ po x 1 and he can discharge after, discharge instruction given verbalized understanding, no SOB, skin intact, friend at bedside, picked up all his belonging and left walking saying he lives 2 blocks away in stable condition
== END 2021-07-04 15:48 | disposition home or self-care (01) | DRG 420 ==
LOC: ER 19:00 → ICU 22:12 → MEDSG1 07-03 11:14
PROVIDERS: ADMIT Registered Nurse; ATTEND Internal Medicine
DX: E11.10 Type 2 diabetes mellitus with ketoacidosis without coma (principal); N17.0 Acute kidney failure with tubular necrosis; K85.90 Acute pancreatitis without necrosis or infection, unspecified; E83.39 Other disorders of phosphorus metabolism; D72.829 Elevated white blood cell count, unspecified; E11.65 Type 2 diabetes mellitus with hyperglycemia; E80.6 Other disorders of bilirubin metabolism; E87.6 Hypokalemia; F10.129 Alcohol abuse with intoxication, unspecified; Z91.14 Patient's other noncompliance with medication regimen; F32.A Depression, unspecified; Z79.84 Long term (current) use of oral hypoglycemic drugs; F41.9 Anxiety disorder, unspecified; Z83.3 Family history of diabetes mellitus; F12.21 Cannabis dependence, in remission; Y90.9 Presence of alcohol in blood, level not specified
CPT/HCPCS: 36415; 71045-TC; 76700-TC; 80048-TC; 80053-TC; 80061-TC; 80076-TC; 82010-TC; 82247-TC; 82248-TC; 82962-TC; 83690-TC; 83735-TC; 84100-TC; 84443-TC; 85025-TC; 87081-TC; C9113; G0378; J1650; J1815; J2405; J3411; J3475; J3480; J3490; J7030; J7042; J7050; J7060

== ENCOUNTER 2021-09-02 20:17 | Emergency (ER) | payer MEDICAID | END 2021-09-02 20:56 | disposition left against medical advice (07) | LOC: ER 20:29 | DX: Z53.21 Procedure and treatment not carried out due to patient leaving prior to being seen by health care provider (principal) ==

== ENCOUNTER 2023-02-26 07:50 | Inpatient (IN) | payer BC, OTHER ==
[~2023-02-26] VITALS: Ht 177.8 cm; Wt 86.2 kg
[2023-02-26] MEDS ORDERED: FAMOTIDINE/PF INJ 20 MG/2 ML VIAL IV ONE ×2 (08:30→08:44)
[2023-02-26] MEDS ORDERED: ONDANSETRON HCL/PF 4 MG/2 ML VIAL IVP ONE ×2 (08:30→11:00)
[2023-02-26] MEDS ORDERED: IV NS 0.9% 1,000 ML BAG IV ONE ×3 (08:30→11:00)
[2023-02-26 08:37] LABS: BASOPHILS # (AUTO) 0.1 K/uL (0.0-0.2); HEMATOCRIT 54 % (39-51); HEMOGLOBIN 18.6 g/dL (13.5-17.5); LYMPHOCYTES # (AUTO) 0.5 K/uL (0.8-4.8); MEAN CORPUSCULAR HEMOGLOBIN 31 PG (26.0-33.0); MEAN CORPUSCULAR HGB CONC 35 g/dl (31.0-36.0); MEAN CORPUSCULAR VOLUME 90 fL (80-96); MONOCYTES # (AUTO) 0.5 K/uL (0.1-1.30); MONOCYTES % (AUTO) 4.2 % (2.0-12.0); NEUTROPHILS # (AUTO) 10.8 K/uL (1.8-8.9); NEUTROPHILS % (AUTO) 90.8 % (43.0-81.0); PLATELET COUNT (AUTO) 289 K/uL (150-450); RED BLOOD CELL COUNT(AUTO) 5.95 MIL/uL (4.5-6.0); RED CELL DISTRIBUTION WIDTH 13.4 % (11.5-15.0); WHITE BLOOD COUNT (AUTO) 11.9 K/uL (4.3-11.0)
[2023-02-26] MEDS ORDERED: ONDANSETRON HCL/PF 4 MG/2 ML VIAL ONE ×3 (08:44→14:14)
[2023-02-26 08:48] LABS: CALCIUM, SERUM 9.7 mg/dL (8.5-10.1); CARBON DIOXIDE 11 mmol/L (21-32); CHLORIDE 93 mmol/L (98-107); CREATININE 1.7 mg/dL (0.6-1.3); GLUCOSE 290 mg/dL (74-106); POTASSIUM 3.4 mmol/L (3.5-5.1); SODIUM SERUM 138 mmol/L (136-145); UREA NITROGEN, BLOOD 20 mg/dL (7-18)
[2023-02-26 08:56] LABS: ALANINE AMINOTRANSFERASE 61 U/L (12-78); ALBUMIN 4.1 g/dL (3.4-5.0); ALKALINE PHOSPHATASE 131 U/L (46-116); ASPARTATE AMINOTRANSFERASE 31 U/L (15-37); BILIRUBIN,DIRECT 0.7 mg/dL (0.0-0.2); BILIRUBIN,TOTAL 1.9 mg/dL (0.2-1.0); LIPASE 28 U/L (16-77); TOTAL PROTEIN, SERUM 9.4 g/dL (6.4-8.2)
[2023-02-26] MEDS ORDERED: INSULIN REGULAR, HUMAN 100 UNIT/ML 10 ML VIAL SQ ONE (09:00)
[2023-02-26] MEDS ORDERED: POTASSIUM CHLORIDE 20 MEQ POWDER PACKET PO ONE (09:00)
[2023-02-26] MEDS ORDERED: POTASSIUM CHLORIDE 20 MEQ POWDER PACKET ONE (09:01)
[2023-02-26 09:02] LABS: MAGNESIUM 2.3 mg/dL (1.8-2.4)
[2023-02-26] MEDS ORDERED: INSULIN REGULAR, HUMAN 100 UNIT/ML 10 ML VIAL ONE (09:02)
[2023-02-26] MEDS ORDERED: GABA-532 PO (09:09)
[2023-02-26] MEDS ORDERED: CHOL100043 PO (09:09)
[2023-02-26] MEDS ORDERED: LORA-953 PO (09:09)
[2023-02-26] MEDS ORDERED: MULT-1275 PO (09:09)
[2023-02-26] MEDS ORDERED: OLOP2.5D12 EACHEYE (09:35)
[2023-02-26] MEDS ORDERED: INSULIN REGULAR, HUMAN 100 UNIT in IV NS 0.9% 99 ML IV PRN ×2 (11:30)
[2023-02-26] MEDS ORDERED: MORPHINE SULFATE INJ 2 MG/ML DISP.SYRIN IV PRN (11:30)
[2023-02-26 11:42] LABS: APPEARANCE,URINE CLEAR (CLEAR); BILIRUBIN,URINE 1+ (NEGATIVE); BLOOD, URINE NEGATIVE Ery/uL (NEGATIVE); COLOR,URINE YELLOW (YELLOW); KETONES,URINE 3+ mg/dL (NEGATIVE); LEUKOCYTE ESTERASE ,URINE NEGATIVE (NEGATIVE); NITRITE, URINE NEGATIVE (NEGATIVE); PROTEIN,URINE 1+ mg/dl (NEGATIVE); UGLUCOSE TRACE mg/dL (NEGATIVE); UROBILINOGEN,URINE 0.2 EU/dL (0.2)
[2023-02-26 11:48] LABS: ADD URINE CULTURE NO; BACTERIA,URINE Rare /HPF (None Seen); RBC,URINE 0-2 /HPF (0-2); SQUAMOUS EPITHELIAL CELL,UR Few /HPF (None Seen); WBC,URINE 0-2 /HPF (0-3)
[2023-02-26] MEDS: ONDANSETRON HCL/PF 4 MG/2 ML VIAL IVP PRN (14:26)
[2023-02-26 16:27] VITALS: TEMP 98.4
[2023-02-26] MEDS ORDERED: METOCLOPRAMIDE HCL 10 MG/2 ML VIAL ONE (18:09)
[2023-02-26] MEDS: METOCLOPRAMIDE HCL 10 MG/2 ML VIAL IV SCH (18:13)
[2023-02-27] VITALS (7 sets, daily range): BP systolic 123–140; BP diastolic 69–86; O2SAT 97–98
[2023-02-27] MEDS ORDERED: METOCLOPRAMIDE HCL 10 MG/2 ML VIAL ONE ×2 (00:32→06:28)
[2023-02-27] MEDS: METOCLOPRAMIDE HCL 10 MG/2 ML VIAL IV SCH ×3 (00:33→12:21)
[2023-02-27] MEDS ORDERED: ONDANSETRON HCL/PF 4 MG/2 ML VIAL ONE (01:31)
[2023-02-27] MEDS: ONDANSETRON HCL/PF 4 MG/2 ML VIAL IVP PRN (01:36)
[2023-02-27] MEDS: IV NS 0.9% 1,000 ML IV PRN ×2 (01:37→09:46)
[2023-02-27 06:48] LABS: SITE, VBG Right Radial; VBG BASE EXCESS -11.2 mmol/L (-3-3); VBG COHb 0.2 %; VBG MetHb 0.6 %; VBG O2Hb 96.7 %; VBG OXYGEN SATURATION 97.5 %; VBG PCO2 20.3 mmHg (40-52); VBG PH 7.354 (7.31-7.41); VBG PO2 104.6 mmHg (30-50); VBG TOTAL HEMOGLOBIN 19.3 G/dL (13.5-18.0); VENT MODE, VBG ROOM AIR 21%
[2023-02-27 08:17] LABS: BASOPHILS % (AUTO) 0.4 % (0.0-2.0); EOSINOPHILS % (AUTO) 0.3 % (0.0-6.0); HEMATOCRIT 40 % (39-51); HEMOGLOBIN 13.9 g/dL (13.5-17.5); LYMPHOCYTES # (AUTO) 0.9 K/uL (0.8-4.8); LYMPHOCYTES % (AUTO) 13.8 % (20.0-44.0); MEAN CORPUSCULAR HEMOGLOBIN 31 PG (26.0-33.0); MEAN CORPUSCULAR HGB CONC 35 g/dl (31.0-36.0); MEAN CORPUSCULAR VOLUME 91 fL (80-96); MONOCYTES # (AUTO) 0.5 K/uL (0.1-1.30); MONOCYTES % (AUTO) 7.3 % (2.0-12.0); NEUTROPHILS # (AUTO) 5.3 K/uL (1.8-8.9); NEUTROPHILS % (AUTO) 78.2 % (43.0-81.0); PLATELET COUNT (AUTO) 134 K/uL (150-450); RED BLOOD CELL COUNT(AUTO) 4.42 MIL/uL (4.5-6.0); RED CELL DISTRIBUTION WIDTH 13.3 % (11.5-15.0); WHITE BLOOD COUNT (AUTO) 6.8 K/uL (4.3-11.0)
[2023-02-27 08:24] LABS: CALCIUM, SERUM 8.3 mg/dL (8.5-10.1); CREATININE 0.9 mg/dL (0.6-1.3)
[2023-02-27 08:31] LABS: ALBUMIN 2.7 g/dL (3.4-5.0); BILIRUBIN,TOTAL 1.4 mg/dL (0.2-1.0); TOTAL PROTEIN, SERUM 6.3 g/dL (6.4-8.2)
[2023-02-27 08:50] LABS: MAGNESIUM 2.1 mg/dL (1.8-2.4)
[2023-02-27] MEDS ORDERED: PANTOPRAZOLE 40 MG VIAL IV SCH (09:00)
[2023-02-27] MEDS: POTASSIUM CHLORIDE 20 MEQ TAB.PRT.SR PO SCH ×5 (09:34→14:31)
[2023-02-27] MEDS: BLOOD SUGAR DIAGNOSTIC 1 EACH STRIP IN SCH ×4 (11:12→14:00)
[2023-02-27 12:31] LABS: CREATININE 0.9 mg/dL (0.6-1.3)
[2023-02-27 12:40] LABS: POTASSIUM 2.7 mmol/L (3.5-5.1)
[2023-02-27] MEDS ORDERED: METFORMIN 850 MG TABLET PO SCH (13:00)
[2023-02-27] MEDS ORDERED: BLOOD SUGAR DIAGNOSTIC 1 EACH STRIP VI SCH (13:00)
[2023-02-27] MEDS ORDERED: DEXTROSE 50%-WATER 50 ML DISP.SYRIN IV PRN (13:00)
[2023-02-27] MEDS ORDERED: INSULIN REGULAR, HUMAN 100 UNIT/ML 3 ML VIAL SQ PRN (13:00)
[2023-02-27] MEDS ORDERED: *INSULIN REGULAR(HUMULIN R)HUM 100 UNIT/ML VIAL SQ PRN (13:00)
[2023-02-27] MEDS ORDERED: glipiZIDE 5 MG TABLET PO SCH (13:00)
== END 2023-02-27 16:11 | disposition home or self-care (01) | DRG 638 ==
LOC: ER 07:55 → TELE 12:02 → TRANSITION 16:22 → ICU 02-27 07:51
DX: E11.10 Type 2 diabetes mellitus with ketoacidosis without coma (principal); N17.9 Acute kidney failure, unspecified; E87.6 Hypokalemia; F10.10 Alcohol abuse, uncomplicated; Z79.84 Long term (current) use of oral hypoglycemic drugs; E80.6 Other disorders of bilirubin metabolism; E83.39 Other disorders of phosphorus metabolism; E11.40 Type 2 diabetes mellitus with diabetic neuropathy, unspecified; Z79.899 Other long term (current) drug therapy
CPT/HCPCS: 36415; 36600; 71045-TC; 80048-TC; 80053-TC; 80076-TC; 81001; 82803-TC; 82962-TC; 83690-TC; 83735-TC; 83880; 84100-TC; 84484-TC; 85025-TC; 87081-TC; 87086-TC; 93307-TC; A4223; C9113; G0378; G0480; J1815; J2405; J2765; J3490; J7030

== ENCOUNTER 2023-03-22 08:09 | Emergency (ER) | payer BC, OTHER ==
[~2023-03-22] VITALS: Ht 177.8 cm; Wt 86.2 kg
[~2023-03-22 08:09] MED LIST changes: +CHOL100043 PO; +GABA-532 PO; +LORA-953 PO; +MULT-1275 PO; +OLOP2.5D12 EACHEYE
[2023-03-22] MEDS ORDERED: ONDANSETRON HCL/PF 4 MG/2 ML VIAL ONE (08:29)
[2023-03-22] MEDS ORDERED: ONDANSETRON HCL/PF 4 MG/2 ML VIAL IVP ONE (08:30)
[2023-03-22] MEDS ORDERED: IV NS 0.9% 1,000 ML BAG IV ONE ×2 (08:30→09:30)
[2023-03-22] MEDS ORDERED: FAMO-131 PO (08:37)
[2023-03-22] MEDS ORDERED: ONDA4TAB5 PO (08:37)
[2023-03-22 08:47] LABS: BASOPHILS # (AUTO) 0.1 K/uL (0.0-0.2); BASOPHILS % (AUTO) 0.6 % (0.0-2.0); EOSINOPHILS % (AUTO) 0.1 % (0.0-6.0); HEMATOCRIT 48 % (39-51); HEMOGLOBIN 16.5 g/dL (13.5-17.5); LYMPHOCYTES # (AUTO) 0.8 K/uL (0.8-4.8); LYMPHOCYTES % (AUTO) 9.3 % (20.0-44.0); MEAN CORPUSCULAR HEMOGLOBIN 32 PG (26.0-33.0); MEAN CORPUSCULAR HGB CONC 35 g/dl (31.0-36.0); MEAN CORPUSCULAR VOLUME 92 fL (80-96); MONOCYTES # (AUTO) 0.5 K/uL (0.1-1.30); MONOCYTES % (AUTO) 5.4 % (2.0-12.0); NEUTROPHILS # (AUTO) 7.5 K/uL (1.8-8.9); NEUTROPHILS % (AUTO) 84.6 % (43.0-81.0); PLATELET COUNT (AUTO) 295 K/uL (150-450); RED BLOOD CELL COUNT(AUTO) 5.17 MIL/uL (4.5-6.0); WHITE BLOOD COUNT (AUTO) 8.8 K/uL (4.3-11.0)
[2023-03-22 09:11] LABS: AMPHETAMINE, URINE NEGATIVE (NEGATIVE); BARBITURATE, URINE NEGATIVE (NEGATIVE); BENZODIAZEPINE, URINE NEGATIVE (NEGATIVE); CANNABINOID, URINE NEGATIVE (NEGATIVE); COCCAINE, URINE POSITIVE (NEGATIVE); OPIATE, URINE NEGATIVE (NEGATIVE); PHENCYCLIDINE SCREEN,URINE NEGATIVE (NEGATIVE)
[2023-03-22 09:13] LABS: CALCIUM, SERUM 9.3 mg/dL (8.5-10.1); CARBON DIOXIDE 16 mmol/L (21-32); CHLORIDE 93 mmol/L (98-107); CREATININE 0.9 mg/dL (0.6-1.3); GLUCOSE 165 mg/dL (74-106); POTASSIUM 3.5 mmol/L (3.5-5.1); SODIUM SERUM 136 mmol/L (136-145); UREA NITROGEN, BLOOD 10 mg/dL (7-18)
[2023-03-22 09:14] LABS: ALANINE AMINOTRANSFERASE 67 U/L (12-78); ALKALINE PHOSPHATASE 110 U/L (46-116); ASPARTATE AMINOTRANSFERASE 31 U/L (15-37); BILIRUBIN,DIRECT 0.4 mg/dL (0.0-0.2); BILIRUBIN,TOTAL 1.2 mg/dL (0.2-1.0); LIPASE 17 U/L (16-77); TOTAL PROTEIN, SERUM 8.9 g/dL (6.4-8.2)
[2023-03-22 09:23] LABS: APPEARANCE,URINE CLEAR (CLEAR); BILIRUBIN,URINE NEGATIVE (NEGATIVE); BLOOD, URINE NEGATIVE Ery/uL (NEGATIVE); COLOR,URINE YELLOW (YELLOW); KETONES,URINE 3+ mg/dL (NEGATIVE); LEUKOCYTE ESTERASE ,URINE NEGATIVE (NEGATIVE); NITRITE, URINE NEGATIVE (NEGATIVE); PROTEIN,URINE 2+ mg/dl (NEGATIVE); UGLUCOSE NEGATIVE (NEGATIVE); UROBILINOGEN,URINE 0.2 EU/dL (0.2)
[2023-03-22 09:38] LABS: ADD URINE CULTURE NO; BACTERIA,URINE Few /HPF (None Seen); RBC,URINE NONE SEEN /HPF (0-2); SQUAMOUS EPITHELIAL CELL,UR Few /HPF (None Seen); WBC,URINE NONE SEEN /HPF (0-3)
[2023-03-22 09:39] LABS: COARSE GRANULAR CASTS,URINE Rare /LPF (None Seen)
[2023-03-22 10:29] LABS: ABG BASE EXCESS -6.3 mmol/L; ABG OXYGEN SATURATION 96.7 % (92.0-98.5); ABG PCO2 27.5 mmHg (35.0-45.0); ABG PH 7.401 (7.350-7.450); ABG PO2 85.7 mmHg (75.0-100.0); ABG TOTAL HEMOGLOBIN 15.9 G/dL (13.5-18.0); COHb 0.2 % (0.5-1.5); MetHb 0.3 % (0.0-1.5); O2Hb 96.2 % (94.0-97.0); SITE, ABG Right Radial; VENT MODE, BG ROOM AIR
[2023-03-22] MEDS ORDERED: LIDOCAINE VISCOUS 2% UD 15 ML UDC MM ONE (10:30)
[2023-03-22] MEDS ORDERED: FAMOTIDINE/PF INJ 20 MG/2 ML VIAL IV ONE ×2 (10:30→10:52)
[2023-03-22] MEDS ORDERED: MAG HYDROX/AL HYDROX/SIMETH 30 ML UDC PO ONE (10:30)
[2023-03-22] MEDS ORDERED: CHLO25CA22 PO (10:33)
[2023-03-22] MEDS ORDERED: LIDOCAINE VISCOUS 2% UD 15 ML UDC ONE (10:52)
[2023-03-22] MEDS ORDERED: MAG HYDROX/AL HYDROX/SIMETH 30 ML UDC ONE (10:52)
[2023-03-22 11:04] VITALS: BP 133/78; TEMP 98.2; O2SAT 99
== END 2023-03-22 11:19 | disposition home or self-care (01) ==
LOC: ER 08:26
DX: F10.139 Alcohol abuse with withdrawal, unspecified (principal); R10.13 Epigastric pain; R11.2 Nausea with vomiting, unspecified; E11.9 Type 2 diabetes mellitus without complications; Z79.84 Long term (current) use of oral hypoglycemic drugs; Z79.899 Other long term (current) drug therapy; Y90.1 Blood alcohol level of 20-39 mg/100 ml
CPT/HCPCS: 99285; 96374; 96361; 96375; 93005; 82803; 71045; 85025; 80048; 83690; 80076; 81001; 36415; 84484; 82962; 36600 ×2; 80320; 80307; J3490; J2405; J7030 ×2; G0480

== ENCOUNTER 2023-04-12 20:21 | Emergency (ER) | payer BC, OTHER ==
[~2023-04-12] VITALS: Ht 180.3 cm; Wt 86.2 kg
[2023-04-12] MEDS: IV NS 0.9% 1,000 ML IV ONE (01:00)
[2023-04-12] MEDS: POTASSIUM CL. PREMIX PERIPHER. 50 ML IV SCH (01:00)
[~2023-04-12 20:21] MED LIST changes: +CHLO25CA22 PO; +FAMO-131 PO; +ONDA4TAB5 PO
[2023-04-12 22:58] LABS: BASOPHILS # (AUTO) 0.1 K/uL (0.0-0.2); BASOPHILS % (AUTO) 0.8 % (0.0-2.0); EOSINOPHILS % (AUTO) 0.1 % (0.0-6.0); HEMATOCRIT 54 % (39-51); HEMOGLOBIN 18.6 g/dL (13.5-17.5); LYMPHOCYTES # (AUTO) 0.6 K/uL (0.8-4.8); LYMPHOCYTES % (AUTO) 4.4 % (20.0-44.0); MEAN CORPUSCULAR HEMOGLOBIN 32 PG (26.0-33.0); MEAN CORPUSCULAR HGB CONC 34 g/dl (31.0-36.0); MEAN CORPUSCULAR VOLUME 92 fL (80-96); MONOCYTES # (AUTO) 0.6 K/uL (0.1-1.30); MONOCYTES % (AUTO) 4.9 % (2.0-12.0); NEUTROPHILS # (AUTO) 11.9 K/uL (1.8-8.9); NEUTROPHILS % (AUTO) 89.8 % (43.0-81.0); PLATELET COUNT (AUTO) 248 K/uL (150-450); RED BLOOD CELL COUNT(AUTO) 5.89 MIL/uL (4.5-6.0); RED CELL DISTRIBUTION WIDTH 15.1 % (11.5-15.0); WHITE BLOOD COUNT (AUTO) 13.2 K/uL (4.3-11.0)
[2023-04-12 23:04] LABS: APPEARANCE,URINE SLIGHTLY CLOUDY (CLEAR); BILIRUBIN,URINE 3+ (NEGATIVE); BLOOD, URINE NEGATIVE Ery/uL (NEGATIVE); COLOR,URINE DARK YELLOW (YELLOW); KETONES,URINE 3+ mg/dL (NEGATIVE); LEUKOCYTE ESTERASE ,URINE NEGATIVE (NEGATIVE); NITRITE, URINE POSITIVE (NEGATIVE); PH,URINE 6.5 (5.0-8.0); PROTEIN,URINE 2+ mg/dl (NEGATIVE); UGLUCOSE TRACE mg/dL (NEGATIVE)
[2023-04-12] MEDS ORDERED: PANTOPRAZOLE 40 MG VIAL ONE (23:04)
[2023-04-12] MEDS ORDERED: ONDANSETRON HCL/PF 4 MG/2 ML VIAL ONE (23:05)
[2023-04-12 23:11] LABS: AMPHETAMINE, URINE NEGATIVE (NEGATIVE); BARBITURATE, URINE NEGATIVE (NEGATIVE); BENZODIAZEPINE, URINE POSITIVE (NEGATIVE); CANNABINOID, URINE NEGATIVE (NEGATIVE); COCCAINE, URINE POSITIVE (NEGATIVE); OPIATE, URINE NEGATIVE (NEGATIVE); PHENCYCLIDINE SCREEN,URINE NEGATIVE (NEGATIVE)
[2023-04-12] MEDS: PANTOPRAZOLE 40 MG VIAL IV ONE (23:18)
[2023-04-12] MEDS: ONDANSETRON HCL/PF - ER 4 MG/2 ML VIAL IV ONE (23:18)
[2023-04-12 23:21] LABS: ALANINE AMINOTRANSFERASE 104 U/L (12-78); ALBUMIN 4.1 g/dL (3.4-5.0); ALCOHOL, BLOOD < 3 mg/dL (0-10); ALKALINE PHOSPHATASE 129 U/L (46-116); ASPARTATE AMINOTRANSFERASE 50 U/L (15-37); BILIRUBIN,TOTAL 2.2 mg/dL (0.2-1.0); CALCIUM, SERUM 10.1 mg/dL (8.5-10.1); CARBON DIOXIDE 20 mmol/L (21-32); CHLORIDE 90 mmol/L (98-107); CREATININE 1.7 mg/dL (0.6-1.3); GLUCOSE 262 mg/dL (74-106); NT-PRO BNP 96 pg/mL (0-125); SODIUM SERUM 135 mmol/L (136-145); UREA NITROGEN, BLOOD 27 mg/dL (7-18)
[2023-04-12 23:26] LABS: ADD URINE CULTURE YES; BACTERIA,URINE 1+ /HPF (None Seen); HYALINE CASTS, URINE Few /LPF (None Seen); MUCUS,URINE Moderate /LPF (None Seen); RBC,URINE 0-2 /HPF (0-2); SQUAMOUS EPITHELIAL CELL,UR None Seen /HPF (None Seen); WBC,URINE 0-2 /HPF (0-3)
[2023-04-12 23:29] LABS: POTASSIUM 2.7 mmol/L (3.5-5.1)
[2023-04-12 23:30] LABS: LACTIC ACID 2.3 mmol/L (0.4-2.0)
[2023-04-13] MEDS ORDERED: POTASSIUM CL. PREMIX PERIPHER. 100 ML ONE (00:34)
[2023-04-13 00:37] LABS: ABG OXYGEN SATURATION 96.7 % (92.0-98.5); ABG PCO2 27.9 mmHg (35.0-45.0); ABG PH 7.467 (7.350-7.450); ABG PO2 87.9 mmHg (75.0-100.0); ABG TOTAL HEMOGLOBIN 19.6 G/dL (13.5-18.0); COHb 0.2 % (0.5-1.5); MetHb 0.7 % (0.0-1.5); O2Hb 95.8 % (94.0-97.0); SITE, ABG Right Brachial; VENT MODE, BG Room Air
[2023-04-13 00:42] LABS: MAGNESIUM 2.5 mg/dL (1.8-2.4)
[2023-04-13] MEDS: IV NS 0.9% 1,000 ML IV ONE (01:15)
[2023-04-13 01:21] LABS: ACETONE, SERUM SMALL (NEGATIVE)
[2023-04-13 02:10] LABS: BILIRUBIN,DIRECT 0.6 mg/dL (0.0-0.2)
[2023-04-13] MEDS ORDERED: POTA10CA43 PO (03:06)
[2023-04-13] MEDS ORDERED: OMEP20TA20 PO (03:06)
[2023-04-13] MEDS ORDERED: ONDA4TAB5 PO (03:54)
[2023-04-13] MEDS ORDERED: ONDANSETRON HCL/PF 4 MG/2 ML VIAL ONE (03:54)
[2023-04-13] MEDS: ONDANSETRON HCL/PF - ER 4 MG/2 ML VIAL IV ONE (03:57)
[2023-04-13 04:09] VITALS: BP 151/91; TEMP 97.8; O2SAT 96
== END 2023-04-13 06:08 | disposition home or self-care (01) ==
LOC: ER 20:23
DX: F10.10 Alcohol abuse, uncomplicated (principal); K29.70 Gastritis, unspecified, without bleeding; R11.2 Nausea with vomiting, unspecified; E11.9 Type 2 diabetes mellitus without complications; Z79.84 Long term (current) use of oral hypoglycemic drugs; Z79.899 Other long term (current) drug therapy; Y90.9 Presence of alcohol in blood, level not specified
CPT/HCPCS: 99285; 96374; 96375; 93005; 71045; 85025; 87040; 87086; 82010; 83605 ×2; 83735; 81001; 36415 ×2; 80053; 84484; 83880; 36600 ×2; 80320; 80307; 96361; 82803; 96376; 71250; 74176; 82248; J2405 ×2; C9113; J7030; J3480; A4223; G0480